=== PATIENT | male | born 1965 | race Hispanic/Latino ===

== ENCOUNTER → 2016-05-02 | Outpatient (REF) | payer BC ==
[2016-05-02 17:44] LABS: MEAN CORPUSCULAR HGB CONC 32.5 g/dl (32.0-36.5); MEAN CORPUSCULAR VOLUME 92.3 fl (80.0-96.0); RED CELL DISTRIBUTION WIDTH 14.7 % (11.5-14.5)
== END ==
LOC: M SFHCLERA 14:29
PROVIDERS: ATTEND Nurse Practitioner Family
DX: M71.571 Other bursitis, not elsewhere classified, right ankle and foot (principal)

== ENCOUNTER 2016-07-27 20:07 | Emergency (ER) | payer OTHER, BC ==
[~2016-07-27] VITALS: Ht 172.7 cm; Wt 93.0 kg
[2016-07-27 20:26] VITALS: BP 143/81
[2016-07-27] MEDS ORDERED: FISH1000 PO (20:32)
[2016-07-27] MEDS ORDERED: ZOLO100T PO (20:32)
[2016-07-27] MEDS ORDERED: BUSP15TA47 PO (20:32)
[2016-07-27] MEDS ORDERED: LISI10TA4 PO (20:32)
[2016-07-27] MEDS ORDERED: ATEN25TA PO (20:32)
== END 2016-07-27 21:16 | disposition home or self-care (01) ==
LOC: M ED 20:56
DX: R25.2 Cramp and spasm (principal); S00.83XA Contusion of other part of head, initial encounter; Y04.0XXA Assault by unarmed brawl or fight, initial encounter; Y92.89 Other specified places as the place of occurrence of the external cause; Y93.89 Activity, other specified; Y99.0 Civilian activity done for income or pay; I10 Essential (primary) hypertension; E11.9 Type 2 diabetes mellitus without complications; Z90.89 Acquired absence of other organs; Z88.8 Allergy status to other drugs, medicaments and biological substances; Z79.899 Other long term (current) drug therapy

== ENCOUNTER 2018-05-02 17:28 | Inpatient (IN) | payer BC, OTHER ==
[~2018-05-02] VITALS: Ht 172.7 cm; Wt 97.2 kg
[~2018-05-02 17:28] MED LIST: ATEN25TA PO; BUSP15TA47 PO; FISH1000 PO; LISI10TA4 PO; ZOLO100T PO
[2018-05-02] MEDS ORDERED: METOPROLOL TART 25 MG TABLET PO ONE ×2 (18:00→19:00)
[2018-05-02 18:03] LABS: HEMATOCRIT 44.4 % (42.0-52.0); HEMOGLOBIN 15.2 g/dl (13.5-17.5); MEAN CORPUSCULAR HEMOGLOBIN 29.5 pg (27.0-33.0); MEAN CORPUSCULAR HGB CONC 34.2 g/dl (32.0-36.5); PLATELET COUNT, AUTOMATED 155 10^3/uL (150-450); RED BLOOD COUNT 5.16 10^6/uL (4.30-6.10); WHITE BLOOD COUNT 5.7 10^3/uL (4.0-10.0)
[2018-05-02] MEDS ORDERED: LANTINJ4 SC (18:08)
[2018-05-02] MEDS ORDERED: motrin PO (18:08)
[2018-05-02] MEDS ORDERED: ASPI1TAB PO (18:08)
[2018-05-02] MEDS ORDERED: LISI-542 PO (18:08)
[2018-05-02] MEDS ORDERED: METF500T13 PO (18:08)
[2018-05-02] MEDS ORDERED: TRAM50TA2 PO (18:08)
[2018-05-02] MEDS: METOPROLOL 5 MG/5 ML VIAL IV SCH ×3 (18:24→18:39)
[2018-05-02 18:54] LABS: ACETAMINOPHEN LEVEL < 2.0 UG/ML (10.0-30.0); ALBUMIN 3.6 GM/DL (3.2-5.2); ALT/SGPT 29 U/L (12-78); BILIRUBIN,DIRECT < 0.1 MG/DL (0.0-0.2); BILIRUBIN,TOTAL 0.3 MG/DL (0.2-1.0); BLOOD UREA NITROGEN 18 MG/DL (7-18); CALCIUM LEVEL 8.7 MG/DL (8.5-10.1); CARBON DIOXIDE LEVEL 24 MEQ/L (21-32); CHLORIDE LEVEL 109 MEQ/L (98-107); CPK CREATINE PHOSPHOKINASE 424 U/L (39-308); CREATININE FOR GFR 1.02 MG/DL (0.70-1.30); ETHYL ALCOHOL (ETHANOL) 0.344 % (0.000-0.010); GLOMERULAR FILTRATION RATE > 60.0 (>56); GLUCOSE, FASTING 228 MG/DL (70-100); MAGNESIUM LEVEL 1.5 MG/DL (1.8-2.4); MB/CK RELATIVE INDEX 0.61 (< OR =4); PHOSPHORUS LEVEL 2.5 MG/DL (2.5-4.9); POTASSIUM SERUM 3.9 MEQ/L (3.5-5.1); SALICYLATE LEVEL 3.4 MG/DL (5.0-30.0); SODIUM LEVEL 145 MEQ/L (136-145); TOTAL PROTEIN 7.8 GM/DL (6.4-8.2); TROPONIN I < 0.02 NG/ML (< 0.10)
[2018-05-02] MEDS ORDERED: FISH7.5C PO (19:07)
[2018-05-02] MEDS ORDERED: IBUP80TA PO (19:07)
[2018-05-02] MEDS ORDERED: MAG SULF 1GM/100ML (MAG RUN) 1 GM in APPROPRIATE DILUENT 1 EA IV ONE (19:45)
[2018-05-02] MEDS ORDERED: DEXTROSE 50% 50 ML SYRINGE IV PRN (20:00)
[2018-05-02] MEDS ORDERED: GLUCOSE 4 GM CHEW TABLET PO PRN (20:00)
[2018-05-02] MEDS ORDERED: GLUCAGON FOR INJ 1 MG VIAL (J1610) SC PRN (20:00)
--- NOTE | 2018-05-02 20:19 | REP ---
Clinical: Chest pain and atrial flutter . Comparison: None . Findings: The mediastinum and cardiac silhouette are stable and within normal limits for portable technique. The lung holliday are clear without acute consolidation, effusion, or pneumothorax. Skeletal structures are intact. Impression: No acute cardiopulmonary process appreciated. Electronically Signed by Filipe Altamirano MD 05/02/2018 08:10 P
[2018-05-02] MEDS ORDERED: LISINOPRIL 5 MG TAB PO SCH (21:00)
[2018-05-02 21:35] VITALS: BP 125/95
[2018-05-02] MEDS: NS 1,000 ML IV SCH (21:51)
[2018-05-02 22:00] VITALS: BP 125/95
[2018-05-02] MEDS ORDERED: METOPROLOL TART 25 MG TABLET PO SCH (22:00)
[2018-05-02] MEDS: THIAMINE 100 MG TAB PO SCH (22:07)
[2018-05-02] MEDS: ENOXAPARIN 100MG/1ML SYRINGE (J1650) SC SCH (22:08)
[2018-05-02 23:50] VITALS: BP 141/93
[2018-05-03] VITALS (13 sets, daily range): BP systolic 130–168; BP diastolic 80–120
[2018-05-03 00:35] LABS: APPEARANCE, URINE CLEAR (CLEAR); BACTERIA, URINE AUTO NEGATIVE (NEGATIVE); BILIRUBIN, URINE AUTO NEGATIVE (NEGATIVE); BLOOD, URINE BLOOD 1+ (NEGATIVE); COLOR, URINE YELLOW (YELLOW); GLUCOSE, URINE (UA) AUTO 3+ mg/dL (NEGATIVE); KETONE, URINE AUTO NEGATIVE (NEGATIVE); LEUKOCYTE ESTERASE, URINE AUTO NEGATIVE (NEGATIVE); MUCUS, URINE SMALL (NEGATIVE); NITRITE, URINE AUTO NEGATIVE (NEGATIVE); PROTEIN, URINE AUTO 3+ mg/dL (NEGATIVE); RBC, URINE AUTO 3 /HPF (0-3); SQUAMOUS EPITHELIAL CELL UR AU 0 /HPF (0-6); UROBILINOGEN, URINE AUTO 0.2 mg/dL (0.0-2.0); WBC, URINE AUTO 2 /HPF (0-3)
[2018-05-03 00:42] LABS: AMPHETAMINES LEVEL URINE NEGATIVE (NEGATIVE); BARBITURATES URINE NEGATIVE (NEGATIVE); BENZODIAZEPINES URINE NEGATIVE (NEGATIVE); CANNABINOIDS URINE NEGATIVE (NEGATIVE); COCAINE METABOLITE URINE NEGATIVE (NEGATIVE); METHADONE URINE NEGATIVE (NEGATIVE); OPIATES URINE NEGATIVE (NEGATIVE); PHENCYCLIDINE URINE NEGATIVE (NEGATIVE)
[2018-05-03] MEDS: HumaLOG INSULIN (NovoLOG) PER UNIT SC SCH ×5 (01:34→20:21)
[2018-05-03] MEDS: ONDANSETRON 4MG/2ML VIAL (J2405) IV PRN ×2 (04:01→21:23)
[2018-05-03] MEDS: LORazepam 2 MG TAB PO PRN ×3 (04:07→23:59)
--- NOTE | 2018-05-03 04:30 | HPE ---
DATE OF ADMISSION: 05/02/2018 CHIEF COMPLAINT: The patient was brought in by emergency medical services (EMS) after his called stating that he had suicidal ideations. He was noted to be in new onset atrial flutter (a-flutter) as well as noted to be intoxicated. HISTORY OF PRESENT ILLNESS: The patient is a 53-year-old male. He has a significant past medical history of chronic pain likely secondary to osteoarthritis, hypertension, diabetes. He was brought into the emergency room after his called EMS stating that he had suicidal ideations. Upon arrival to the emergency room the patient denies suicidal or homicidal ideations. He states his is fabricating the story about him having suicidal ideations. He is a chronic drinker. He states he has 8 comped glasses of vodka multiple times per week. On admission he is noted to have a blood alcohol level of 0.344, appears intoxicated. He is also noted to be in new onset atrial flutter (a-flutter). He complains that he has been having palpitations on and off for the past several days. He denies chest pain, cough, fevers, chills, shortness of breath, urinary symptoms orthopnea or paroxysmal nocturnal dyspnea (PND). He does not have any noticeable tremors. He denies auditory or tactile hallucinations. He states he has withdrawn in the past but has never had withdrawal seizures. He has attempted to do rehabilitation but states he was not able to complete it because he didn't like the facility. He vehemently denies any suicidal or homicidal ideations stating this entire story has been fabricated but he does seem a bit disheveled and is displaying some odd behavior while in the emergency room. PAST MEDICAL HISTORY: See history of the present illness (HPI). PAST SURGICAL HISTORY: He has had an appendectomy. HOME MEDICATIONS: Include: - aspirin - atenolol - ibuprofen as needed - tramadol - Lantus 25 units at night SOCIAL HISTORY: He smokes a pack per day. He endorses alcohol abuse. He states he has multiple hard drinks of tequila several times per week. His last drink was earlier today. He denies any drug use. ALLERGIES: To BUPROPION; reaction is unknown. FAMILY HISTORY: Family history is noncontributory. REVIEW OF SYSTEMS: A 12-point review of systems was completed, all of which were negative except those listed in the history of the present illness. PAST PSYCHOLOGICAL HISTORY: He denies any prior history of suicidal attempts. He currently denies homicidal or suicidal ideations. VITAL SIGNS ON ADMISSION: Notable for a heart rate of 124, respirations of 20, saturating at 94% on room air, blood pressure of 150/97, temperature 98.1. PHYSICAL EXAMINATION: General: He is well nourished, in no apparent distress. Seems frustrated. Head is normocephalic, atraumatic. Eyes: Extraocular movements are intact. Pupils equal, round, reactive to light. Neck is supple. No jugular venous pressure (JVP). Lungs: Appear to be clear to auscultation. No crackles, wheezes, rales or rhonchi. Cardiovascular: Irregularly irregular rhythm. Normal S1, S2. No murmurs, gallops, or rubs. Abdomen: Soft, nontender, nondistended, positive bowel sounds. No rebound or guarding. Extremities: No pitting edema or calf tenderness. Skin: Appears to be intact. No rashes, lesions or breakdown. Neurological: Alert and oriented (A and O) times three. No focal deficits appreciated on examination. No visible tremors of the outstretched arms. PSYCHOLOGICAL: Denies tactile or visual hallucinations. LABORATORIES AND IMAGING COMPLETED IN THE EMERGENCY ROOM: White count of 5, hemoglobin and hematocrit (H and H) of 15/44, platelet count of 155. Chemistry: Shows a BUN and creatinine of 18/1.02. Troponins: Negative. Thyroid-stimulating hormone (TSH) 1.23. No imaging was completed in the emergency room. Urine toxicology still pending. ASSESSMENT AND PLAN: 1. New onset atrial flutter (a-flutter). Will rule out underlying structural heart disease with an echocardiogram as well as rule out acute coronary syndrome (ACS) with serial troponins, serial electrocardiogram (EKG) and continue the patient on telemetry. Will assess for any signs of infection with a urinalysis (UA) and a chest x-ray. Thyroid-stimulating hormone (TSH) within normal limits. This is possibly secondary to chronic alcohol abuse. Will place the patient on intravenous (IV) fluids. Will place the patient on Lopressor 25 every 8 hours. Hold his atenolol with a goal heart rate of 60-110, Cardizem as needed pushes as blood pressure permits. CHADS VASc score of [address]. [address] on Lovenox twice a day. Echocardiogram ordered for the morning. 2. For ethanol (EtOH) intoxication impending withdrawals. Will place him on the Clinical [place] Withdrawal Assessment for Alcohol (CIWA) protocol, Ativan as per protocol. Thiamine, folate, multivitamin. Will replenish his magnesium for hypomagnesemia. Will place him on normal saline. 3. Suicidal ideation. The patient has been seen here by the special services supervisor in the emergency room. He will be placed on a one-to-one and will likely need psychiatric evaluation in the morning. 4. Hypertension. Will hold his atenolol while he is on the beta-kenneth. Will hold his aspirin as he is on Lovenox for now. 5. Diabetes. Will continue his Lantus and place him on insulin sliding scale. 6. Chronic pain. Will continue his tramadol. 7. Supportive deep vein thrombosis (DVT) prophylaxis. He is on Lovenox for atrial flutter (a-flutter). 8. Gastrointestinal (GI) prophylaxis. Not indicated. 9. Diet: Cardiac, diabetic diet.
[2018-05-03 05:36] LABS: HEMATOCRIT 38.7 % (42.0-52.0); MEAN CORPUSCULAR HEMOGLOBIN 29.9 pg (27.0-33.0); MEAN CORPUSCULAR HGB CONC 34.1 g/dl (32.0-36.5); MEAN CORPUSCULAR VOLUME 87.8 fl (80.0-96.0); PLATELET COUNT, AUTOMATED 127 10^3/uL (150-450); RED BLOOD COUNT 4.41 10^6/uL (4.30-6.10); WHITE BLOOD COUNT 6.1 10^3/uL (4.0-10.0)
[2018-05-03 05:42] LABS: HEMOGLOBIN 13.2 g/dl (13.5-17.5)
[2018-05-03 06:03] LABS: BLOOD UREA NITROGEN 17 MG/DL (7-18); CALCIUM LEVEL 8.1 MG/DL (8.5-10.1); CARBON DIOXIDE LEVEL 28 MEQ/L (21-32); CHLORIDE LEVEL 104 MEQ/L (98-107); GLOMERULAR FILTRATION RATE > 60.0 (>56); GLUCOSE, FASTING 214 MG/DL (70-100); MAGNESIUM LEVEL 1.4 MG/DL (1.8-2.4); POTASSIUM SERUM 4.5 MEQ/L (3.5-5.1); SODIUM LEVEL 141 MEQ/L (136-145); TROPONIN I < 0.02 NG/ML (< 0.10)
[2018-05-03] MEDS: MAG SULF 1GM/100ML (MAG RUN) 1 GM in APPROPRIATE DILUENT 1 EA IV SCH ×2 (07:27→09:18)
[2018-05-03] MEDS ORDERED: METOPROLOL TART 25 MG TABLET PO SCH (09:00)
[2018-05-03] MEDS ORDERED: METOPROLOL 5 MG/5 ML VIAL IV STA (09:15)
[2018-05-03] MEDS: LEVEMIR (INSULIN DETEMIR) 1 UNITS/0.01ML SC SCH (09:16)
[2018-05-03] MEDS: ENOXAPARIN 100MG/1ML SYRINGE (J1650) SC SCH ×2 (09:16→20:21)
[2018-05-03] MEDS: OMEGA-3 1000MG CAPSULE PO SCH (09:17)
[2018-05-03] MEDS: MULTIVITAMINS/MINERALS THERAP 1 TAB PO SCH (09:17)
[2018-05-03] MEDS: FOLIC ACID 1 MG TAB PO SCH (09:17)
[2018-05-03] MEDS: THIAMINE 100 MG TAB PO SCH ×2 (09:17→20:20)
[2018-05-03] MEDS: OXAZEPAM 15 MG CAP PO SCH ×3 (09:36→22:46)
[2018-05-03] MEDS: METOPROLOL 5 MG/5 ML VIAL IV SCH ×4 (10:08→22:51)
[2018-05-03] MEDS: NS 1,000 ML IV SCH ×2 (10:40→21:23)
[2018-05-03] MEDS ORDERED: METOPROLOL TART 25 MG TABLET PO ONE (12:30)
[2018-05-03] MEDS: MAGNESIUM OXIDE 400 MG TAB (MAG-OX) PO SCH ×2 (12:41→20:20)
[2018-05-03] MEDS: traMADol 50 MG TAB PO PRN (16:32)
[2018-05-03] MEDS: METOPROLOL TART 25 MG TABLET PO SCH (20:21)
[2018-05-03] MEDS ORDERED: PERCOCET 5MG/325MG TAB PO ONE (21:00)
[2018-05-04] VITALS (8 sets, daily range): BP systolic 140–188; BP diastolic 92–115
--- NOTE | 2018-05-04 00:36 | ECGEPIP ---
Stationary ECG Study [facility] Test Date: 2018-05-03 Pat Name: SHAJI LARA Department: Room: [place] [address] Gender: M [place]: KAYLEEN : 1965 Requested By: GARY THOMAS Order Number: [id number] Reading MD: Mal Ornelas Measurements Intervals [place] Rate: 81 P: 50 GA: 163 QRS: 66 QRSD: 101 T: 49 QT: 402 QTc: 469 Interpretive Statements SINUS RHYTHM WITH OCCASIONAL VENTRICULAR PREMATURE COMPLEXES NO PRIOR TRACING Electronically Signed On 05-04-2018 0:35:33 EST by Mal Ornelas
[2018-05-04] MEDS: LORazepam 2 MG TAB PO PRN ×2 (04:18→09:04)
[2018-05-04] MEDS: traMADol 50 MG TAB PO PRN ×2 (04:18→14:04)
[2018-05-04] MEDS ORDERED: LISINOPRIL 5 MG TAB PO ONE (04:45)
[2018-05-04] MEDS: OXAZEPAM 15 MG CAP PO SCH ×3 (05:52→21:56)
[2018-05-04] MEDS: NS 1,000 ML IV SCH ×2 (05:53→15:49)
[2018-05-04] MEDS ORDERED: oxyCODONE 5MG TAB PO ONE (06:15)
--- NOTE | 2018-05-04 06:18 | ECHO ---
DATE OF PROCEDURE: 05/03/2018 DATE OF : 1965 AGE: 53. REFERRING PROVIDER: Friday PATIENT LOCATION: Room 3219 REASON FOR THE ECHOCARDIOGRAM: Atrial fibrillation/flutter. 2D MEASUREMENTS: IVS: 1.2 cm LV: 3.8 cm LVPW: 1.2 cm LA: 4.6 cm Aorta: 3.5 cm DOPPLER MEASUREMENTS: Peak velocity across the aortic valve: 0.75 m/s Peak velocity across the LVOT: 1.1 m/s Mitral E: 0.86 2D COMMENTS: 1. Technically limited study due to poor acoustic window. 2. Normal left ventricular size and wall thickness. Left ventricular systolic function also appeared to be normal with a LVEF estimated at 50-55%. 3. Mildly enlarged left atrium. The right atrium may be minimally enlarged as well as the right ventricle, but the right ventricle free wall was laura well. 4. The atrial septum appeared to be normal without evidence of defect or shunt. 5. Normal aortic root. 6. Trace to small pericardial effusion noted posteriorly in limited views. 7. The aortic valve, mitral valve and tricuspid valve appeared to be normal. The pulmonic valve also appeared to be normal. The proximal pulmonary artery branches were not well visualized. 8. The inferior vena cava was not well visualized. DOPPLER: It detects mild mitral regurgitation, trace tricuspid regurgitation and trace aortic regurgitation noted in limited views. Assessment of the left ventricular diastolic function was limited in view of the underling atrial fibrillation/flutter. IMPRESSION: 1. Low normal global left ventricular systolic function. 2. Mildly enlarged left atrium with mild mitral regurgitation. 3. Trace tricuspid regurgitation. 4. Trace pericardial effusion noted in limited views.
[2018-05-04 06:24] LABS: HEMATOCRIT 37.8 % (42.0-52.0); HEMOGLOBIN 12.7 g/dl (13.5-17.5); MEAN CORPUSCULAR HEMOGLOBIN 29.8 pg (27.0-33.0); MEAN CORPUSCULAR HGB CONC 33.6 g/dl (32.0-36.5); MEAN CORPUSCULAR VOLUME 88.7 fl (80.0-96.0); PLATELET COUNT, AUTOMATED 111 10^3/uL (150-450); RED BLOOD COUNT 4.26 10^6/uL (4.30-6.10); WHITE BLOOD COUNT 6.1 10^3/uL (4.0-10.0)
[2018-05-04] MEDS: NICOTINE 21MG/24HR 1 EA TRANSDERMAL TD PRN (06:43)
[2018-05-04 06:51] LABS: BLOOD UREA NITROGEN 15 MG/DL (7-18); CALCIUM LEVEL 8.1 MG/DL (8.5-10.1); CARBON DIOXIDE LEVEL 27 MEQ/L (21-32); CHLORIDE LEVEL 100 MEQ/L (98-107); CREATININE FOR GFR 0.92 MG/DL (0.70-1.30); GLOMERULAR FILTRATION RATE > 60.0 (>56); GLUCOSE, FASTING 199 MG/DL (70-100); POTASSIUM SERUM 4.2 MEQ/L (3.5-5.1); SODIUM LEVEL 134 MEQ/L (136-145)
--- NOTE | 2018-05-04 07:32 | IPN ---
DATE OF VISIT: 05/03/2018 SUBJECTIVE: The patient is seen and examined in the room today. During the encounter, the patient has recurrent atrial flutter with a heart rate fluctuating between 130 to 160s. The patient also noted to have increased sweating and increased anxiety. The patient stated his last drink was the morning of the date of admission. The patient admitted he has been drinking excessively. Usually he will drink more than half a liter of liquor every day. At the time I encountered the patient, he denies thoughts of hurting himself. OBJECTIVE: Vital Signs: Temperature is 98.6, pulse 154, respirations 20, blood pressure 154/94, pulse oximetry 95% in room air. General: Anxious, mild distress, alert and oriented times three. HEENT: Normocephalic, atraumatic. Extraocular grossly intact. Cardiovascular: Tachycardiac, irregularly irregular. Lungs: Clear to auscultation bilaterally. Abdomen: Soft. Nontender. Nondistended. Bowel sounds present. Extremities: No edema. LABORATORY DATA: WBC 6.1, hemoglobin 13.3, hematocrit 38.7, platelet count 127. Sodium 141, potassium 4.5, chloride 104, carbon dioxide 28, BUN 17, creatinine 0.9, GFR greater than 60, fasting glucose 214, calcium 8.1, magnesium 1.4, troponin I less than 0.02. ASSESSMENT AND PLAN: 1. Severe alcohol withdrawal. The patient does have a significant alcohol consumption history. On the date of admission, the patient had an alcohol level of 0.344. The patient demonstrated signs of withdrawal. The patient was started on Serax supplemented with IV Ativan as needed. Continue with CIWA protocol, thiamine, folic acid and multivitamin. 2. Atrial flutter. At the time the patient arrived in the emergency room, the patient had atrial flutter and beta kenneth was given to the patient. The patient temporarily converted back to sinus rhythm. At the time of the morning encounter, the patient's rhythm returned to atrial flutter. Beta kenneth dosage and frequency has been adjusted. The patient is on Lovenox. 3. Diabetes. On Levemir, sliding scale, consistent carbohydrate diet. 4. Hypertension. Currently the patient is on metoprolol. 5. Osteoarthritis. 6. Questionable suicidal ideations. Information reported to the EMS by patient's . Patient currently has a sitter. 7. Deep vein thrombosis (DVT) prophylaxis. On Lovenox.
[2018-05-04] MEDS: MULTIVITAMINS/MINERALS THERAP 1 TAB PO SCH (08:53)
[2018-05-04] MEDS: MAGNESIUM OXIDE 400 MG TAB (MAG-OX) PO SCH ×2 (08:53→21:56)
[2018-05-04] MEDS: OMEGA-3 1000MG CAPSULE PO SCH (08:53)
[2018-05-04] MEDS: THIAMINE 100 MG TAB PO SCH ×2 (08:53→21:56)
[2018-05-04] MEDS: FOLIC ACID 1 MG TAB PO SCH (08:54)
[2018-05-04] MEDS: HumaLOG INSULIN (NovoLOG) PER UNIT SC SCH ×4 (08:55→21:00)
[2018-05-04] MEDS: METOPROLOL TART 25 MG TABLET PO SCH ×2 (08:55→21:56)
[2018-05-04] MEDS: LEVEMIR (INSULIN DETEMIR) 1 UNITS/0.01ML SC SCH (08:56)
[2018-05-04] MEDS: ENOXAPARIN 100MG/1ML SYRINGE (J1650) SC SCH ×2 (08:56→21:56)
[2018-05-04] MEDS ORDERED: METOPROLOL 5 MG/5 ML VIAL IV ONE ×2 (09:00→11:00)
--- NOTE | 2018-05-04 15:50 | IPN ---
DATE OF SERVICE: 05/04/2018 SUBJECTIVE: Patient examined at bedside, resting comfortably. He reports he had some bilateral knee joint pain overnight that he usually gets but it is improving since he was given Percocet and oxycodone. He has no other complaints today. He again denies having any thoughts to harm himself or anyone else. He does admit to drinking "half a liter of vodka a day more or less." No reported events overnight. Of note, his heart rate is up to the 150s this morning. He himself denies any palpitations or hallucinations. OBJECTIVE: Vital Signs: Temperature 97.3, pulse 160, respirations 20, blood pressure 154/98, pulse oximetry 99% on room air. General: Resting in bed, mildly anxious and tired. Alert and oriented times three. HEENT: Normocephalic, atraumatic. Extraocular muscles intact. Cardiovascular: Tachycardiac with normal S1, S2. He is noted to be in sinus this morning. Lungs: Clear bilaterally. Equal chest rise. No wheezing, rhonchi or rales. Abdomen: Soft. Nontender. Nondistended. Hypoactive bowel sounds. Extremities: No clubbing, cyanosis, edema. Skin: No visible rashes or lesions. LABS: WBC 6.1. Hemoglobin and hematocrit 12.7, 37.8. Platelets 111. Sodium 134. Potassium 4.2. Chloride 100. CO2 27. BUN and creatinine 15 and 0.92. ASSESSMENT AND PLAN: 1. Acute alcohol withdrawal. The patient regularly drinks about a half liter of hard liquor a day and is on clinical institute withdrawal assessment for alcohol (CIWA) protocol with scheduled Serax and as needed Ativan, with folate, multivitamins and thiamine. On admission, his blood alcohol content (TABATHA) was 0.344. Continue closely monitoring in progressive care unit (PCU). 2. Tachycardia. The patient has had bouts of atrial flutter during his stay and continues on oral Lopressor. He is noted to be anxious this morning with heart rate in the 150s to 160s. Will closely reassess after IV Lopressor is added. Of note, he is in sinus this morning, no longer in atrial flutter and is on appropriate dosage of Lovenox. 3. Insulin-dependent diabetes mellitus, type 2. Continue consistent carbohydrate diet and insulin sliding scale inpatient. 4. Hypertension. He is continued on beta-kenneth, and home lisinopril is currently on hold as we get his heart rate under control. 5. Chronic arthritic pain. Patient is continued on his home [place]-3 fatty acids and tramadol. 6. Questionable suicidal ideation. When patient was initially brought in by Emergency Medical Services (EMS) it was reported by his that he had thoughts to harm himself. Continue sitter in the room and closely monitoring in progressive care unit. Patient himself denies any thoughts to harm self or anyone else. 7. Deep vein thrombosis (DVT) prophylaxis. On Lovenox. DISPOSITION: Continue closely monitoring his heart rate and for signs of alcohol withdrawal. [facility] My faculty preceptor for this patient encounter was physically present during the encounter and was fully available. All aspects of the patient interview, examination, medical decision making process, and medical care plan development were reviewed and approved by the faculty preceptor. The faculty preceptor is aware and concurs with the plan as stated in the body of this note and will attest to such by his/her co-signature.
[2018-05-04] MEDS ORDERED: MELOXICAM (MOBIC) 7.5 MG TAB PO ONE (16:15)
[2018-05-04] MEDS ORDERED: ROSU40TA3 PO (17:17)
[2018-05-04] MEDS ORDERED: HYDRO50TAB PO (17:17)
[2018-05-04] MEDS ORDERED: LISI-538 PO (17:17)
[2018-05-04] MEDS ORDERED: DRIS50003 PO (17:17)
[2018-05-04] MEDS ORDERED: PRED5TA PO (17:17)
--- NOTE | 2018-05-04 18:25 | REP ---
Left ankle series: Four views. History: Joint pain and swelling. Question effusion. Findings: Four views of the left ankle show plantar calcaneal spurring. There is some mild diffuse swelling. Ankle mortise is intact. Mild tibiotalar spurring is noted. There is no compelling evidence of joint effusion on lateral radiograph. There is a tiny calcific density adjacent to the lateral malleolar tip but this does not appear to be acute. Impression: Diffuse swelling. Tibiotalar spurring. Heel spur. No acute bony abnormality. No compelling evidence of joint effusion. Electronically Signed by Alexis Yates MD 05/05/2018 08:07 A
--- NOTE | 2018-05-04 20:05 | ECGEPIP ---
Stationary ECG Study [facility] - ED Test Date: 2018-05-04 Pat Name: SHAJI LARA Department: Room: [place] [address] Gender: M Clinic Lpn: : 1965 Requested By: Ciara Grier Order Number: [id number] Reading MD: Gosia Chaney Measurements Intervals [place] Rate: 89 P: 41 WV: 164 QRS: 65 QRSD: 102 T: 33 QT: 374 QTc: 457 Interpretive Statements SINUS RHYTHM POSSIBLE LEFT ATRIAL ENLARGEMENT PROLONGED QTC NONSPECIFIC ST T WAVE CHANGES CW 05/03/[address] T WAVE CHANGES Electronically Signed On 05-04-2018 20:04:46 EST by Gosia Chaney
[2018-05-05 00:10] VITALS: BP 174/102
[2018-05-05] MEDS: traMADol 50 MG TAB PO PRN ×2 (00:30→17:26)
[2018-05-05] MEDS: NS 1,000 ML IV SCH (03:20)
[2018-05-05 04:00] VITALS: BP 168/102
[2018-05-05] MEDS: OXAZEPAM 15 MG CAP PO SCH ×3 (05:43→21:35)
[2018-05-05 05:51] LABS: HEMATOCRIT 33.4 % (42.0-52.0); HEMOGLOBIN 11.6 g/dl (13.5-17.5); MEAN CORPUSCULAR HEMOGLOBIN 29.7 pg (27.0-33.0); MEAN CORPUSCULAR HGB CONC 34.7 g/dl (32.0-36.5); MEAN CORPUSCULAR VOLUME 85.4 fl (80.0-96.0); RED BLOOD COUNT 3.91 10^6/uL (4.30-6.10); WHITE BLOOD COUNT 6.8 10^3/uL (4.0-10.0)
[2018-05-05 06:10] LABS: BLOOD UREA NITROGEN 10 MG/DL (7-18); CALCIUM LEVEL 8.2 MG/DL (8.5-10.1); CARBON DIOXIDE LEVEL 25 MEQ/L (21-32); CHLORIDE LEVEL 99 MEQ/L (98-107); CREATININE FOR GFR 0.77 MG/DL (0.70-1.30); GLOMERULAR FILTRATION RATE > 60.0 (>56); GLUCOSE, FASTING 128 MG/DL (70-100); MAGNESIUM LEVEL 1.2 MG/DL (1.8-2.4); POTASSIUM SERUM 3.7 MEQ/L (3.5-5.1); SODIUM LEVEL 131 MEQ/L (136-145)
[2018-05-05 06:25] LABS: PLATELET COUNT, AUTOMATED 91 10^3/uL (150-450)
[2018-05-05 08:00] VITALS: BP 172/115
[2018-05-05] MEDS: OMEGA-3 1000MG CAPSULE PO SCH (08:10)
[2018-05-05] MEDS: MAGNESIUM OXIDE 400 MG TAB (MAG-OX) PO SCH ×2 (08:11→21:35)
[2018-05-05] MEDS: METOPROLOL TART 25 MG TABLET PO SCH ×2 (08:11→21:34)
[2018-05-05] MEDS: MULTIVITAMINS/MINERALS THERAP 1 TAB PO SCH (08:12)
[2018-05-05] MEDS: THIAMINE 100 MG TAB PO SCH (08:12)
[2018-05-05] MEDS: predniSONE 5 MG TAB PO SCH (08:12)
[2018-05-05] MEDS: FOLIC ACID 1 MG TAB PO SCH (08:12)
[2018-05-05] MEDS: ENOXAPARIN 100MG/1ML SYRINGE (J1650) SC SCH ×2 (08:12→21:34)
[2018-05-05] MEDS: HumaLOG INSULIN (NovoLOG) PER UNIT SC SCH ×4 (08:13→20:40)
[2018-05-05] MEDS: LEVEMIR (INSULIN DETEMIR) 1 UNITS/0.01ML SC SCH (08:13)
[2018-05-05] MEDS: MAG SULF 1GM/100ML (MAG RUN) 1 GM in APPROPRIATE DILUENT 1 EA IV SCH ×2 (10:03→11:12)
[2018-05-05] MEDS ORDERED: SLF 3 ML SYR IV PRN (10:15)
[2018-05-05 12:00] VITALS: BP_SYST 150; BP_SYST 160; BP_DIAS 108; BP_DIAS 60
--- NOTE | 2018-05-05 14:15 | REP ---
Duplex extremity venous ultrasound: Bilateral lower extremity. History: Rule out DVT. Findings: The deep veins are anechoic and fully compressible from the groin to the popliteal fossa in the left and right lower extremity. Color flow imaging is homogeneous. Spectral Doppler interrogation demonstrates intact respiratory variation in flow and normal manual augmentation of flow. There is no evidence of deep vein thrombosis. Impression: Negative bilateral lower extremity duplex venous ultrasound. No evidence of deep vein thrombosis. Electronically Signed by Alexis Yates MD 05/05/2018 02:06 P
[2018-05-05] MEDS: SLF 3 ML SYR IV SCH ×2 (14:24→21:16)
[2018-05-05 16:00] VITALS: BP 160/102
--- NOTE | 2018-05-05 16:15 | IPN ---
DATE: 05/05/2018 SUBJECTIVE: The patient is seen at bedside with a sitter in the room. No acute events overnight. Per staff, his heart rate has actually improved. He is no longer having bouts of atrial flutter or heart rate in the 150s and 160s as he did yesterday. He also reports that his left knee and ankle pain are much better after he received his dose of prednisone yesterday. No other signs of withdrawal yesterday. No palpitations or hallucination. The patient is eager to get home. OBJECTIVE: VITAL SIGNS: Temperature 99.6, pulse 85, respirations 20, blood pressure (BP) 172/115 with a mean arterial pressure (MAP) of 134, pulse oximetry 97% on room air. GENERAL: Resting comfortably in bed, in no acute distress. Alert and oriented times three. Fully conversant. HEENT: Normocephalic, atraumatic. Extraocular muscles intact. Moist mucous membranes. NECK: Supple. CARDIOVASCULAR: Regular rate and rhythm. Normal S1 and S2. No audible murmurs. LUNGS: Clear bilaterally with equal chest rise. No wheezes, rhonchi or rales. ABDOMEN: Soft, nontender, nondistended. Positive bowel sounds. EXTREMITIES: No clubbing, cyanosis or edema. He does have some swelling and warmth to his left ankle, more so than the right and his left knee more than the right. However, this has improved from yesterday. SKIN: No evidence of rashes, lesions or ulcerations. LABORATORY: White blood count (WBC) is 6.8, hemoglobin and hematocrit 11.6 and 33.4. Platelets 14. Sodium 131, potassium 3.7, chloride 99, BUN and creatinine 10 and 0.77, magnesium 1.2. IMAGING: Complete. Ankle x-ray of the left reveals diffuse swelling, tibial, talar spurring, heel spur. No acute bony abnormality. No compelling evidence of a joint effusion. ASSESSMENT AND PLAN: 1. Acute alcohol withdrawal. The patient has been in withdrawal during this hospitalization; however, he seems to be stable as of yesterday and today. No hallucinations or aggression. He regularly drinks half a liter of hard liquor a day. Continue Clinical [place] Withdrawal Assessment (CIWA) protocol. Scheduled Serax and as needed Ativan; thiamine, folate, multivitamin on board. 2. Tachycardia with bouts of atrial flutter. The patient has not had atrial flutter as of yesterday evening into this morning. He continues to remain in normal sinus rhythm. He is on Lopressor 75 mg by mouth twice a day, as well as Lovenox for his paroxysmal atrial flutter. 3. Questionable suicidal ideation when he was initially brought in by Emergency Medical Service (EMS). His had reported he had thoughts of harming himself. He again denies this consistently since he has been here. A sitter is present in the room. Will continue to closely monitor. He denies any thoughts of harming himself or anyone else or any previous suicidal attempts. 4. Chronic arthritic pain with left ankle warmth and swelling, likely a flareup. We have obtained his previous emergency room (ER) records, which reveal he does have gouty arthropathy for which he takes prednisone 5 mg as needed. His pain has significantly improved since he was resumed on this as of yesterday. Will continue closely monitoring. Ankle x-ray was negative for any effusion or any acute concerns yesterday. 5. Insulin-dependent diabetes mellitus type 2. Continue insulin sliding scale and consistent carbohydrate hydrate. He is normally on Lantus at home. 6. Hypertension. He is continued on beta kenneth due to his elevated blood pressure this morning. We will resume his lisinopril as well and continue closely monitoring. 7. Deep vein thrombosis (DVT) prophylaxis on Lovenox. DISPOSITION: Pending clinical improvement. Will likely be able to be downgraded hopefully today or tomorrow and discharged within the week. My faculty preceptor for this patient encounter was physically present during the encounter and was fully available. All aspects of the patient interview, examination, medical decision making process, and medical care plan development were reviewed and approved by the faculty preceptor. The faculty preceptor is aware and concurs with the plan as stated in the body of this note and will attest to such by his/her cosignature.
[2018-05-05 20:00] VITALS: BP 180/90
[2018-05-05] MEDS: IBUPROFEN 600 MG TAB PO PRN (21:35)
[2018-05-05] MEDS: LISINOPRIL 10 MG TAB PO SCH (21:35)
[2018-05-06] VITALS (9 sets, daily range): BP systolic 140–152; BP diastolic 75–100
[2018-05-06] MEDS: traMADol 50 MG TAB PO PRN ×2 (01:16→13:19)
[2018-05-06] MEDS: SLF 3 ML SYR IV SCH ×3 (05:38→21:44)
[2018-05-06] MEDS: OXAZEPAM 15 MG CAP PO SCH ×3 (05:38→21:44)
[2018-05-06 06:09] LABS: HEMATOCRIT 33.2 % (42.0-52.0); HEMOGLOBIN 11.1 g/dl (13.5-17.5); MEAN CORPUSCULAR HEMOGLOBIN 29.5 pg (27.0-33.0); MEAN CORPUSCULAR HGB CONC 33.4 g/dl (32.0-36.5); MEAN CORPUSCULAR VOLUME 88.3 fl (80.0-96.0); RED BLOOD COUNT 3.76 10^6/uL (4.30-6.10); WHITE BLOOD COUNT 5.5 10^3/uL (4.0-10.0)
[2018-05-06 06:12] LABS: PLATELET COUNT, AUTOMATED 90 10^3/uL (150-450)
[2018-05-06 06:30] LABS: BLOOD UREA NITROGEN 12 MG/DL (7-18); CALCIUM LEVEL 8.3 MG/DL (8.5-10.1); CARBON DIOXIDE LEVEL 28 MEQ/L (21-32); CHLORIDE LEVEL 99 MEQ/L (98-107); CREATININE FOR GFR 0.79 MG/DL (0.70-1.30); GLOMERULAR FILTRATION RATE > 60.0 (>56); GLUCOSE, FASTING 148 MG/DL (70-100); MAGNESIUM LEVEL 1.5 MG/DL (1.8-2.4); POTASSIUM SERUM 3.9 MEQ/L (3.5-5.1); SODIUM LEVEL 133 MEQ/L (136-145)
[2018-05-06] MEDS ORDERED: MAG SULF 1GM/100ML (MAG RUN) 1 GM in APPROPRIATE DILUENT 1 EA IV ONE (08:15)
[2018-05-06] MEDS: LEVEMIR (INSULIN DETEMIR) 1 UNITS/0.01ML SC SCH (08:42)
[2018-05-06] MEDS: HumaLOG INSULIN (NovoLOG) PER UNIT SC SCH ×4 (08:42→21:00)
[2018-05-06] MEDS: MULTIVITAMINS/MINERALS THERAP 1 TAB PO SCH (08:43)
[2018-05-06] MEDS: METOPROLOL TART 25 MG TABLET PO SCH ×2 (08:43→21:43)
[2018-05-06] MEDS: predniSONE 5 MG TAB PO SCH (08:43)
[2018-05-06] MEDS: MAGNESIUM OXIDE 400 MG TAB (MAG-OX) PO SCH ×2 (08:43→21:44)
[2018-05-06] MEDS: FOLIC ACID 1 MG TAB PO SCH (08:43)
[2018-05-06] MEDS: OMEGA-3 1000MG CAPSULE PO SCH (08:43)
[2018-05-06] MEDS: NICOTINE 21MG/24HR 1 EA TRANSDERMAL TD PRN (08:51)
--- NOTE | 2018-05-06 10:59 | IPNPDOC ---
Date Seen The patient was seen on 05/06/18. Progress Note SUBJECTIVE: Pt examined at bedside with sitter in room. No events overnight. HR continues to remain stable and in NSR. OBJECTIVE: VITAL SIGNS: see below GENERAL: Resting comfortably in bed, in no acute distress. Alert and oriented times three. Fully conversant. HEENT: Normocephalic, atraumatic. Extraocular muscles intact. Moist mucous membranes. NECK: Supple. CARDIOVASCULAR: Regular rate and rhythm. Normal S1 and S2. No audible murmurs. LUNGS: Clear bilaterally with equal chest rise. No wheezes, rhonchi or rales. ABDOMEN: Soft, nontender, nondistended. Positive bowel sounds. EXTREMITIES: No clubbing, cyanosis or edema. Swelling of knees, l>r. Ankle swelling appears better. SKIN: No evidence of rashes, lesions or ulcerations. ASSESSMENT AND PLAN: 1. Acute alcohol withdrawal. Pt continues being stable and no futher episodes of withdrawal during this stay. No hallucinations or aggression. He regularly drinks half a liter of hard liquor a day. Continue Clinical [place] Withdrawal Assessment (CIWA) protocol. Scheduled Serax and as needed Ativan; thiamine, folate, multivitamin on board. 2. Tachycardia with paroxysmal atrial flutter. No further episodes of Aflutter for past 2 days. HR stable in NSR. Continue Lopressor 75 mg po bid & Lovenox. 3. Questionable suicidal ideation. When he was initially brought in by Emergency Medical Service (EMS), had reported he had thoughts of harming himself. He again denies this consistently since he has been here. A sitter is present in the room. Will continue to closely monitor. He denies any thoughts of harming himself or anyone else or any previous suicidal attempts. Will obtain Psych c/s once medically stable. 4. Gouty arthropathy & chronic arthritic pain improved since restarting home po prednisone 5mg. Left knee continues to bother him and appears swollen. Pending xray. Doppler & left ankle xray thus far negative. 5. Insulin-dependent diabetes mellitus type 2. Continue insulin sliding scale and consistent carbohydrate hydrate. He is normally on Lantus at home. 6. Hypertension. Continue beta kenneth & lisinopril DVT ppx: Lovenox. DISPOSITION: Will downgrade and obtain Psych c/s once stable. Anticipate d/c w/i the week. VS, I&O, 24H, Fishbone Vital Signs/I&O Vital Signs Date Time Temp Pulse Resp B/P (MAP) Pulse Ox O2 Delivery O2 Flow Rate FiO2 05/06/18 08:43 78 152/98 05/06/18 07:57 97.3 20 98 05/02/18 21:18 Room Air I&O- Last 24 Hours up to 6 AM 05/06/18 06:00 Intake Total 1160 ml Output Total 1150 ml Balance 10 ml Laboratory Data 24H LABS Laboratory Tests 2 05/05/18 11:13: Bedside Glucose (Misc Panel) 147H 05/05/18 18:08: Magnesium Level 1.8 05/05/18 18:13: Bedside Glucose (Misc Panel) 125H 05/05/18 20:07: Bedside Glucose (Misc Panel) 132H 05/06/18 05:33: Nucleated Red Blood Cells % (auto) 0.0, Anion Gap 6L, Glomerular Filtration Rate > 60.0, Blood Urea Nitrogen 12, Creatinine 0.79, Sodium Level 133L, Potassium Level 3.9, Chloride Level 99, Carbon Dioxide Level 28, Calcium Level 8.3L, Magnesium Level 1.5L CBC/BMP Laboratory Tests 05/06/18 05:33 Red Blood Count 3.76 L, Mean Corpuscular Volume 88.3, Mean Corpuscular Hemoglobin 29.5, Mean Corpuscular Hemoglobin Concent 33.4, Red Cell Distribution Width 14.6 H, Calcium Level 8.3 L GME ATTESTATION GME ATTESTATION My faculty preceptor for this patient encounter was physically present during the encounter and was fully available. All aspects of the patient interview, examination, medical decision making process, and medical care plan development were reviewed and approved by the faculty preceptor. The faculty preceptor is aware and concurs with the plan as stated in the body of this note and will attest to such by his/her cosignature. CHARLES DIAZ DO May 06, 2018 10:59
[2018-05-06] MEDS: IBUPROFEN 600 MG TAB PO PRN ×2 (11:34→22:16)
[2018-05-06] MEDS: ENOXAPARIN 100MG/1ML SYRINGE (J1650) SC SCH ×2 (11:35→21:43)
--- NOTE | 2018-05-06 15:55 | REP ---
Bilateral knee radiographs: Nine views. History: Swelling and pain. No comparison images. Findings: Five views of each knee demonstrate evidence of large bilateral joint effusions distending the suprapatellar bursa. There is bilateral patellofemoral osteoarthritic spurring. There is mild medial compartment joint space narrowing on the right with osteoarthritis spurring seen medially. Subcortical cyst formation is seen in the medial femoral condyle. On the left there is minimal spurring medially, no significant joint space narrowing is observed. Impression: Bilateral medial and patellofemoral compartment osteoarthritis, right more so than left. Bilateral large joint effusions. Electronically Signed by Alexis Yates MD 05/06/2018 07:20 P
[2018-05-06] MEDS: LISINOPRIL 10 MG TAB PO SCH (21:43)
[2018-05-07] VITALS: BP_SYST 146
[2018-05-07 04:00] VITALS: BP 141/75
[2018-05-07] MEDS: traMADol 50 MG TAB PO PRN (04:22)
[2018-05-07 05:38] LABS: HEMATOCRIT 33.5 % (42.0-52.0); HEMOGLOBIN 11.6 g/dl (13.5-17.5); MEAN CORPUSCULAR HEMOGLOBIN 29.7 pg (27.0-33.0); MEAN CORPUSCULAR HGB CONC 34.6 g/dl (32.0-36.5); MEAN CORPUSCULAR VOLUME 85.7 fl (80.0-96.0); PLATELET COUNT, AUTOMATED 133 10^3/uL (150-450); RED BLOOD COUNT 3.91 10^6/uL (4.30-6.10); WHITE BLOOD COUNT 6.1 10^3/uL (4.0-10.0)
[2018-05-07 05:50] LABS: BLOOD UREA NITROGEN 13 MG/DL (7-18); CALCIUM LEVEL 9.2 MG/DL (8.5-10.1); CARBON DIOXIDE LEVEL 25 MEQ/L (21-32); CHLORIDE LEVEL 100 MEQ/L (98-107); CREATININE FOR GFR 0.77 MG/DL (0.70-1.30); GLOMERULAR FILTRATION RATE > 60.0 (>56); GLUCOSE, FASTING 119 MG/DL (70-100); MAGNESIUM LEVEL 1.5 MG/DL (1.8-2.4); POTASSIUM SERUM 3.6 MEQ/L (3.5-5.1); SODIUM LEVEL 133 MEQ/L (136-145)
[2018-05-07] MEDS: SLF 3 ML SYR IV SCH ×3 (06:00→20:30)
[2018-05-07] MEDS: IBUPROFEN 600 MG TAB PO PRN ×2 (06:08→19:49)
[2018-05-07] MEDS: OXAZEPAM 15 MG CAP PO SCH ×3 (06:09→19:49)
[2018-05-07 08:00] VITALS: BP 162/92
[2018-05-07] MEDS: ENOXAPARIN 100MG/1ML SYRINGE (J1650) SC SCH ×2 (08:57→20:30)
[2018-05-07] MEDS: HumaLOG INSULIN (NovoLOG) PER UNIT SC SCH ×4 (08:59→20:22)
[2018-05-07] MEDS: LEVEMIR (INSULIN DETEMIR) 1 UNITS/0.01ML SC SCH (08:59)
[2018-05-07] MEDS: OMEGA-3 1000MG CAPSULE PO SCH (09:00)
[2018-05-07] MEDS: METOPROLOL TART 25 MG TABLET PO SCH ×2 (09:00→20:29)
[2018-05-07] MEDS: predniSONE 5 MG TAB PO SCH (09:00)
[2018-05-07] MEDS: FOLIC ACID 1 MG TAB PO SCH (09:00)
[2018-05-07] MEDS: MULTIVITAMINS/MINERALS THERAP 1 TAB PO SCH (09:00)
[2018-05-07] MEDS: MAGNESIUM OXIDE 400 MG TAB (MAG-OX) PO SCH ×2 (09:01→20:29)
[2018-05-07] MEDS: MAG SULF 1GM/100ML (MAG RUN) 1 GM in APPROPRIATE DILUENT 1 EA IV SCH ×2 (09:10→10:10)
[2018-05-07 12:16] VITALS: BP 154/86
[2018-05-07 12:59] LABS: ERYTHROCYTE SEDIMENTATION RATE 73 mm/hr (0-20)
[2018-05-07 13:04] VITALS: BP 146/86
--- NOTE | 2018-05-07 17:32 | MHCRPDOC ---
[facility] Consultation Consultation DATE OF CONSULTATION: 05/07/18 CONSULTATION REQUESTED BY: Dr. Ortiz REASON FOR CONSULTATION: Pt. had expressed SI to his GF RELEVANT HISTORY: Patient says he drinks alcohol, about half a liter. Initially he said weekly and then, he said not that frequently. He says his SO doesn't like him to drink alcohol and he was drinking when she yelled at him and then he yelled back. He went to sleep and when he woke up he went and walked the dogs, made coffee and breakfast for him, she got up and he made her breakfast and coffee, then he walked her to the bathroom, helped her to have a shower because she has hip problems. About one hour later he had the policemen at his door and they told him that he had to come with him to the hospital because his GF called saying that he had told her he was going to put two bullets to his brain. PAST PSYCHIATRIC HISTORY: he says he was diagnosed with PTSD several years ago because he was deployed to [facility] and [place] several years ago and [facility]. He says he used to have nightmares and had hypervigilance, which he still has. He still seats with his back against the corner when he goes to a restaurant. He was treated with Zoloft and Buspar but he never felt anything and he was taking 100 mgs of Zoloft and Buspar 10 mgs PO TID PAST MEDICAL HISTORY: HTN, Diabetes FAMILY HISTORY: Mother: in 2006, she had dementia Father: when he was 1.5 years of pancreatitis Siblings: Alive and well, live in [place] Children: Has three stepchildren. One of them is problematic, she steals from him and his GF. The other 2 are fine. PERSONAL AND SOCIAL HISTORY: The patient was born and raised in [place]. Resides in: [place] Marital Status: D , he lives with his girlfriend Children: has three stepchildren Employment: yes, at the [employer] SUBSTANCE ABUSE HISTORY: Smoking: Smokes almost 1 pack/day ETOH: Yes, drinks half liter/week Illicit Drugs: Denies LEGAL HISTORY: Denies MENTAL STATUS EXAMINATION: Patient is a 53-year old male, who is alert, cooperative, dressed in hospital clothes. Speech is spontaneous and fluent, normal in rate, tone and volume. Language skills are good. Thought processes including: intact. Thought content: goal directed, he wants to go to work at the [employer] on the 17, he wants to talk to his GF tonight to see where are they standing. Abstract reasoning, and computation: good. Description of associations: intact. Description of abnormal or psychotic thoughts: denies SI/HI, denies AV hallucinations, denies thought delusions. Judgment: fair Insight: fair. Orientation to x 3. Recent and remote memory: intact. Attention span and concentration: good. Language: appropriate, structured, good vocabulary. Fund of knowledge: average. Mood: anxious Affect: congruent with mood, full, reactive. DIAGNOSIS: 1. Generalized Anxiety disorder 2. H/O PTSD 3. Alcohol use disorder PLAN: 1. Patient doesn't need to be on a 1:1. I believe he has never intended to kill himself and he contracted for safety. I think he and his GF have been under a lot of stress ( she was discharged today from the hospital, she had her hip replaced), she has a daughter that causes problems to both of them and he drinks, even when this is occasional. She doesn't like him to drink and he thinks she told the policemen that he had threatened to kill himself because she wanted him to come to the hospital and get treatment. he agreed to seek treatment. he says he went to years ago and he didn't feel it worked for him but he says [facility]. I offered to start him on them but I don't think he is ready for that. TW told him I think both of them his GF and him need therapy. 2. Patient can be discharged home. Vital Signs Vital Signs Date Time Temp Pulse Resp B/P (MAP) Pulse Ox O2 Delivery O2 Flow Rate FiO2 05/07/18 13:04 80 146/86 05/07/18 12:16 96.7 18 98 05/02/18 21:18 Room Air Laboratory Data 24H Labs Laboratory Tests 2 05/06/18 21:42: Bedside Glucose (Misc Panel) 130H 05/07/18 05:15: Nucleated Red Blood Cells % (auto) 0.0, Erythrocyte Sedimentation Rate 73H, Anion Gap 8, Glomerular Filtration Rate > 60.0, Blood Urea Nitrogen 13, Creatinine 0.77, Sodium Level 133L, Potassium Level 3.6, Chloride Level 100, Carbon Dioxide Level 25, Calcium Level 9.2, Magnesium Level 1.5L, C-Reactive Protein, Quantitative 13.50H 05/07/18 12:14: Bedside Glucose (Misc Panel) 140H Home Medications Current Medications Current Medications Dextrose (Dextrose 50%) 25 ml ASDIRECTED PRN IV SEE LABEL COMMENTS; Start 05/02/18 at 20:00 Diltiazem HCl (Cardizem) 10 mg Q6H PRN IV HR sustained over 120; Start 05/02/18 at 20:00; Stop 05/03/18 at 09:17; Status DC Enoxaparin Sodium (Lovenox) 100 mg Q12H SC Last administered on 05/07/18at 08:57; Start 05/02/18 at 21:00 Fish Oil ([place]-3 (1000mg)) 1 cap DAILY PO Last administered on 05/07/18at 09:00; Start 05/03/18 at 09:00 Folic Acid (Folic Acid) 1 mg DAILY PO Last administered on 05/07/18at 09:00; Start 05/03/18 at 09:00 Glucagon (Glucagon) 1 mg ASDIRECTED PRN SC SEE LABEL COMMENTS; Start 05/02/18 at 20:00 Glucose (Glucose) 16 GM ASDIRECTED PRN PO SEE LABEL COMMENTS; Start 05/02/18 at 20:00 Home Med (Med Rec Complete!) ASDIRECTED XX ; Start 05/02/18 at 19:15; Stop 05/02/18 at 19:15; Status DC Ibuprofen (Advil) 600 mg Q8HP PRN PO PAIN Last administered on 05/07/18at 06:08; Start 05/05/18 at 21:30 Insulin Detemir (Levemir Insulin) 25 units QAM SC Last administered on 05/07/18at 08:59; Start 05/03/18 at 09:00 Insulin Human Lispro (HumaLOG INSULIN) SEE PROTOCOL TABLE AC SC Last admin istered on 05/07/18at 12:22; Start 05/03/18 at 07:30 Insulin Human Lispro (HumaLOG INSULIN) SEE PROTOCOL TABLE QHS SC Last adminis tered on 05/03/18at 01:34; Start 05/03/18 at 00:41 Lisinopril (Prinivil) 5 mg QHS PO Last administered on 05/02/18 22:08; Start at 21:00; Stop 05/03/18 at 12:24; Status DC Lisinopril (Prinivil) 10 mg QHS PO Last administered on 05/06/18 21:43; Start 05/05/18 at 21:00 Lorazepam (Ativan) 2 mg ASDIRECTED PRN PO SEE PROTOCOL Last administered on 05/04/18 09:04; Start 05/02/18 at 20:00; Stop 05/07/18 at 13:50; Status DC Magnesium Oxide (Mag-Ox) 400 mg BID PO Last administered on 05/07/18 09:01; Start 05/03/18 at 09:00 Magnesium Sulfate/ Dextrose 1 gm/IV Miscellaneous Supplies 100 ml @ 100 mls/hr 0700,0800 IV Last administered on 05/03/18 09:18; Start 05/03/18 at 07:00; Stop 05/03/18 at 12:00; Status DC Magnesium Sulfate/ Dextrose 1 gm/IV Miscellaneous Supplies 100 ml @ 100 mls/hr Q1H IV Last administered on 05/05/18 11:12; Start 05/05/18 at 10:00; Stop 05/05/18 at 11:59; Status DC Magnesium Sulfate/ Dextrose 1 gm/IV Miscellaneous Supplies 100 ml @ 100 mls/hr Q1H IV Last administered on 05/07/18at 10:10; Start 05/07/18 at 09:00; Stop 05/07/18 at 10:59; Status DC Metoprolol Tartrate (Lopressor) 5 mg Q5M IV Last administered on 05/02/18 18:39; Start 05/02/18 at 18:00; Stop 05/02/18 at 18:11; Status DC Metoprolol Tartrate (Lopressor) 5 mg Q5M IV Last administered on 05/03/18 10:40; Start 05/03/18 at 10:00; Stop 05/03/18 at 10:06; Status DC Metoprolol Tartrate (Lopressor) 5 mg Q5M IV Last administered on 05/03/18 12:58; Start 05/03/18 at 12:40; Stop 05/03/18 at 12:51; Status DC Metoprolol Tartrate (Lopressor) 5 mg STAT STAT IV Last administered on 05/03/18 09:38; Start 05/03/18 at 09:15; Stop 05/03/18 at 09:17; Status DC Metoprolol Tartrate (Lopressor) 25 mg BID PO Last administered on 05/03/18 09:17; Start 05/03/18 at 09:00; Stop 05/03/18 at 12:24; Status DC Metoprolol Tartrate (Lopressor) 25 mg Q8H PO Last administered on 05/02/18 22:09; Start 05/02/18 at 22:00; Stop 05/03/18 at 01:19; Status DC Metoprolol Tartrate (Lopressor) 75 mg BID PO Last administered on 05/07/18 09:00; Start 05/03/18 at 21:00 Multivitamins (Theragram-M) 1 tab DAILY PO Last administered on 05/07/18 09:00; Start 05/03/18 at 09:00 Nicotine (Nicoderm Cq 21mg) 1 patch DAILYPRN PRN TD NICOTINE WITHDRAWAL Last administered on 05/06/18 08:51; Start 05/02/18 at 20:00 Ondansetron HCl (ZOFRAN INJection) 4 mg Q6HP PRN IV NAUSEA OR VOMITING Last administered on 05/03/18 21:23; Start 05/02/18 at 19:30 Oxazepam (Serax) 15 mg Q12H PO ; Start 05/07/18 at 18:00 Oxazepam (Serax) 15 mg Q8H PO Last administered on 05/07/18 06:09; Start 05/06/18 at 14:00; Stop 05/07/18 at 13:48; Status DC Oxazepam (Serax) 30 mg Q8H PO Last administered on 05/06/18 05:38; Start 05/03/18 at 06:00; Stop 05/06/18 at 12:21; Status DC Prednisone (Deltasone) 5 mg DAILY PO Last administered on 05/07/18 09:00; Start 05/05/18 at 09:00 Sodium Chloride 1,000 ml @ 100 mls/hr Q10H IV Last administered on 05/05/18at 03:20; Start 05/02/18 at 20:00; Stop 05/05/18 at 09:25; Status DC Sodium Chloride (Saline Lock Flush) 2 ml ASDIRECTED PRN IV SEE LABEL COMMENTS; Start 05/05/18 at 10:15 Sodium Chloride (Saline Lock Flush) 2 ml SLF IV Last administered on 05/07/18at 14:29; Start 05/05/18 at 14:00 Thiamine HCl (Thiamine HCl) 100 mg BID PO Last administered on 05/05/18at 08:12; Start 05/02/18 at 21:00; Stop 05/05/18 at 09:01; Status DC Tramadol HCl (Ultram) 50 mg BID PRN PO pain Last administered on 05/07/18at 04:22; Start 05/02/18 at 20:00 Scheduled Aspirin (Aspirin 81) 81 Mg Tab, 81 MG PO DAILY, (Reported) Atenolol (Atenolol) 25 Mg Tab, 75 MG PO BID, (Reported) Insulin Glargine (Lantus Solostar) 100 Unit/Ml Inj, 25 UNIT SC QAM, (Reported) Lisinopril (Lisinopril) 20 Mg Tab, 10 MG PO QHS, (Reported) [place] 3 Polyunsat Fatty Acids (Fish Oil 1000 mg) 1 Cap Cap, 1 CAP PO DAILY, (Reported) Rosuvastatin Calcium (Rosuvastatin Calcium) 40 Mg Tab, 40 MG PO QPM, (Reported) Vitamin D (Drisdol) 50,000 Unit Cap, 50,000 UNIT PO Q2WK, (Reported) TAKES EVERY OTHER FRIDAY Scheduled PRN Hydroxyzine HCl (Hydroxyzine HCl) 50 Mg Tab, 50 MG PO BID PRN for ANXIETY, (Reported) Ibuprofen (Ibuprofen) 800 Mg Tab, 800 MG PO Q6H PRN for PAIN, (Reported) Prednisone (Prednisone) 5 Mg Tab, 5 MG PO DAILY PRN for INFLAMMATION, (Reported) Tramadol HCl (Tramadol HCl) 50 Mg Tab, 50 TAB PO BID PRN for pain, (Reported) Allergies Coded Allergies: Bupropion (Verified Allergy, Unknown, 07/27/16) patient becomes fidgity ADELA GAGE MD May 07, 2018 17:32
[2018-05-07 19:07] VITALS: BP 142/86
--- NOTE | 2018-05-07 19:59 | IPNPDOC ---
Date Seen The patient was seen on 05/07/18. Progress Note SUBJECTIVE: Pt examined at bedside with sitter in room. No events overnight. HR continues to remain stable and in NSR. He feels joint pain is better. Eager to go home. OBJECTIVE: VITAL SIGNS: see below GENERAL: Resting comfortably in bed, in no acute distress. Alert and oriented times three. Fully conversant. HEENT: Normocephalic, atraumatic. Extraocular muscles intact. Moist mucous membranes. NECK: Supple. CARDIOVASCULAR: Regular rate and rhythm. Normal S1 and S2. No audible murmurs. LUNGS: Clear bilaterally with equal chest rise. No wheezes, rhonchi or rales. ABDOMEN: Soft, nontender, nondistended. Positive bowel sounds. EXTREMITIES: No clubbing, cyanosis or edema. Swelling of knees, l>r. Ankle swelling appears better. SKIN: No evidence of rashes, lesions or ulcerations. ASSESSMENT AND PLAN: 1. Acute alcohol withdrawal. Pt continues being stable and no further episodes of withdrawal during this stay. No hallucinations or aggression. He regularly drinks half a liter of hard liquor a day. Continue Clinical Stephen Withdrawal Assessment (CIWA) merritt col. Will wean down Serax and d/c Ativan, as he has not required it since 05/04. Thiamine, folate, multivitamin on board. 2. Tachycardia with paroxysmal atrial flutter. No further episodes of Aflutter for past few davila. HR stable in NSR. Continue Lopressor 75 mg po bid & Lovenox. 3. Questionable suicidal ideation. When he was initially brought in by [facility] ([facility]), had reported he had thoughts of harming himself. He again denies this consistently since he has been here. A sitter is present in the room. Will continue to closely monitor. He denies any thoughts of harming himself or anyone else or any previous suicidal attempts. Will obtain Psych c/s today. 4. Gouty arthropathy & chronic arthritic pain improved since restarting home po prednisone 5mg. Left knee continues to bother him and appears swollen. XRay reveals b/l effusions. Ortho consulted. 5. Insulin-dependent diabetes mellitus type 2. Continue insulin sliding scale and consistent carbohydrate hydrate. He is normally on Lantus at home. 6. Hypertension. Continue beta kenneth & lisinopril DVT ppx: Lovenox. DISPOSITION: Will downgrade and obtain Psych & Ortho c/s. Anticipate d/c in next few days. VS, I&O, 24H, Fishbone Vital Signs/I&O Vital Signs Date Time Temp Pulse Resp B/P (MAP) Pulse Ox O2 Delivery O2 Flow Rate FiO2 05/07/18 19:07 98.9 108 18 142/86 (104) 97 05/02/18 21:18 Room Air I&O- Last 24 Hours up to 6 AM 05/07/18 05:59 Intake Total 840 ml Output Total 575 ml Balance 265 ml Laboratory Data 24H LABS Laboratory Tests 2 05/06/18 21:42: Bedside Glucose (Misc Panel) 130H 05/07/18 05:15: Nucleated Red Blood Cells % (auto) 0.0, Erythrocyte Sedimentation Rate 73H, Anion Gap 8, Glomerular Filtration Rate > 60.0, Blood Urea Nitrogen 13, Creatinine 0.77, Sodium Level 133L, Potassium Level 3.6, Chloride Level 100, Carbon Dioxide Level 25, Calcium Level 9.2, Magnesium Level 1.5L, C-Reactive Protein, Quantitative 13.50H 05/07/18 12:14: Bedside Glucose (Misc Panel) 140H 05/07/18 17:40: Bedside Glucose (Misc Panel) 139H CBC/BMP Laboratory Tests 05/07/18 05:15 Red Blood Count 3.91 L, Mean Corpuscular Volume 85.7, Mean Corpuscular H emoglobin 29.7, Mean Corpuscular Hemoglobin Concent 34.6, Red Cell Distribution Width 14.7 H, Calcium Level 9.2 GME ATTESTATION GME ATTESTATION My faculty preceptor for this patient encounter was physically present during the encounter and was fully available. All aspects of the patient interview, examination, medical decision making process, and medical care plan development were reviewed and approved by the faculty preceptor. The faculty preceptor is aware and concurs with the plan as stated in the body of this note and will attest to such by his/her cosignature. CHARLES DIAZ DO May 07, 2018 19:59
[2018-05-07] MEDS: LISINOPRIL 10 MG TAB PO SCH (20:29)
[2018-05-08] MEDS: traMADol 50 MG TAB PO PRN (02:23)
--- NOTE | 2018-05-08 04:22 | REP ---
Clinical: Right arm pain. Technique: Real time arteaga scale and color Doppler evaluation using linear high frequency transducer. Findings: Ultrasound examination of the right upper extremity deep venous structures including jugular, subclavian, axillary, brachial, basilic, and cephalic veins demonstrate normal patency/compressibility , color flow and wave patterns in response to normal respiration and augmentation. Impression: Normal examination. No evidence for deep venous thrombosis to the right upper extremity. Electronically Signed by Filipe Altamirano MD 05/08/2018 04:13 A
[2018-05-08 04:53] VITALS: BP 160/104
[2018-05-08] MEDS: OXAZEPAM 15 MG CAP PO SCH (04:55)
[2018-05-08] MEDS: SLF 3 ML SYR IV SCH (04:56)
[2018-05-08 04:58] VITALS: BP 160/104
[2018-05-08 05:38] LABS: HEMATOCRIT 35.6 % (42.0-52.0); HEMOGLOBIN 12.1 g/dl (13.5-17.5); MEAN CORPUSCULAR HEMOGLOBIN 29.7 pg (27.0-33.0); MEAN CORPUSCULAR VOLUME 87.5 fl (80.0-96.0); PLATELET COUNT, AUTOMATED 165 10^3/uL (150-450); RED BLOOD COUNT 4.07 10^6/uL (4.30-6.10); WHITE BLOOD COUNT 6.2 10^3/uL (4.0-10.0)
[2018-05-08 05:57] LABS: BLOOD UREA NITROGEN 15 MG/DL (7-18); C REACTIVE PROTEIN QUANTITATIV 8.85 MG/DL (0.00-0.30); CALCIUM LEVEL 9.1 MG/DL (8.5-10.1); CARBON DIOXIDE LEVEL 28 MEQ/L (21-32); CHLORIDE LEVEL 101 MEQ/L (98-107); CREATININE FOR GFR 0.79 MG/DL (0.70-1.30); GLOMERULAR FILTRATION RATE > 60.0 (>56); GLUCOSE, FASTING 117 MG/DL (70-100); POTASSIUM SERUM 4.3 MEQ/L (3.5-5.1); SODIUM LEVEL 135 MEQ/L (136-145)
[2018-05-08 06:02] LABS: ERYTHROCYTE SEDIMENTATION RATE 85 mm/hr (0-20)
[2018-05-08] MEDS: IBUPROFEN 600 MG TAB PO PRN (06:55)
[2018-05-08] MEDS: HumaLOG INSULIN (NovoLOG) PER UNIT SC SCH (08:22)
[2018-05-08 08:23] VITALS: BP 162/90
[2018-05-08] MEDS: OMEGA-3 1000MG CAPSULE PO SCH (08:23)
[2018-05-08] MEDS: FOLIC ACID 1 MG TAB PO SCH (08:23)
[2018-05-08] MEDS: METOPROLOL TART 25 MG TABLET PO SCH (08:23)
[2018-05-08] MEDS: predniSONE 5 MG TAB PO SCH (08:23)
[2018-05-08] MEDS: LEVEMIR (INSULIN DETEMIR) 1 UNITS/0.01ML SC SCH (08:23)
[2018-05-08] MEDS: ENOXAPARIN 100MG/1ML SYRINGE (J1650) SC SCH (08:24)
[2018-05-08] MEDS: MAGNESIUM OXIDE 400 MG TAB (MAG-OX) PO SCH (08:24)
[2018-05-08] MEDS: MULTIVITAMINS/MINERALS THERAP 1 TAB PO SCH (08:24)
[2018-05-08] MEDS ORDERED: NICO21PAT TD (09:20)
[2018-05-08] MEDS ORDERED: VITMTA PO (09:20)
[2018-05-08] MEDS ORDERED: THIA100TA PO (09:20)
[2018-05-08] MEDS ORDERED: FOLI1TAB11 PO (09:20)
[2018-05-08] MEDS ORDERED: MAG400TA PO (09:20)
[2018-05-08] MEDS ORDERED: METO1TAB87 PO (09:20)
[2018-05-08] MEDS ORDERED: XARE20TA PO (09:20)
--- NOTE | 2018-05-08 13:01 | CR ---
DATE OF CONSULTATION: 05/07/2018 CHIEF COMPLAINT: Bilateral knee swelling. HISTORY OF PRESENT ILLNESS: This is a 53-year-old man who complains of a 5 day history of bilateral knee swelling. He was urgently brought to the hospital after his called EMS stating that he suicidal ideations. He was noted to be in new onset atrial flutter as well as noted to be intoxicated. Upon questioning he states that the swelling in the knees was spontaneous with no trauma. Minimal pain at this point. Slowly decreasing in terms of the amount of swelling over the last 4 days. No other joints that are swollen for him. He denies chest pain, cough, fever, chills, shortness of breath or urinary symptoms or any other associated symptoms. He is stable to walk weight bearing as tolerated. PAST MEDICAL HISTORY: Includes bilateral knee osteoarthritis, elbow gout, as well as hypertension and diabetes. For his knee pain that has been ongoing on a chronic basis related to osteoarthritis he has been seeing apparently some surgeons at the [facility] and also in [place]. MEDICATIONS AT HOME: Include aspirin, atenolol, ibuprofen as needed, Tramadol and Lantus 25 units at night. ALLERGIES: Allergic reaction listed to BUPROPION. SURGICAL HISTORY: Appendectomy. SOCIAL HISTORY: [id number] day smoker. He uses alcohol and abuses it. He denies any elicit drug use. REVIEW OF SYSTEMS: Again was negative for fever, chills, flu like illness or any other associated symptoms. PHYSICAL EXAMINATION: Temperature throughout his entire visit was not elevated. This morning 97.6 and this afternoon 96.7. Blood pressure 154/86, pulse rate 80, 98% on room air. Respiratory rate 18. He is alert and oriented times three. He is reasonably well groomed. His mood and affect is a little bit withdrawn but he is easy to converse with. Lower extremity alignment is normal. He is able to walk with a normal non-antalgic gait. Inspection of his knees and both lower extremities revealed moderate amount of swelling on the left side, a little bit less on the right side. He has obvious effusions but really no overlying redness. Only slight warmth but no signs of infection. No open wounds. Nothing at the ankles or feet and no redness tracking down the lower extremities. Range of motion was nearly full 0-120 degrees on left side, 0-130 on the right side. He did state that he had bilateral ACL injuries in the past but really his knees were stiff more than anything with normal Marii and normal anterior drawer. MCL, LCL and PCL were all stable and solid. There is really no pain with micromotion of either knee. He had normal sensation of his feet, superficial and deep peroneal nerve as well as saphenous, sural and tibial. Feet were warm and well perfused with good pedal pulses. He is able to wiggle his toes and dorsiflex and plantarflex his feet on both sides. Laboratory examination during his entire stay revealed white blood cell count around 6. This morning it was 6.1. Hemoglobin stable at 11.6. ASR slightly high today 73, but there is no previous values to trend. Chemistries revealed CRP of 13.5. Urinary appears negative but elevated protein and glucose. There is no obvious positive urine culture. Radiographs are reviewed of both knees, four views each. This shows moderate sized effusions on both knees. There is mild to moderate tricompartmental osteoarthritis with tibial spine spurring. It appears to be in groove. There is no obvious fracture or other soft tissue abnormalities aside from the medium sized effusions. Duplex venous ultrasound was performed that was negative for deep vein thrombosis in his lower extremities. ASSESSMENT AND PLAN: This 53-year-old man appears to be have bilateral knee acute inflammatory reaction. He may have gout but regardless he is on Prednisone currently being treated for this by the stock lifter. Really this is settling down for him and slowly getting better over the last few days and in the absence of any clinical signs or symptoms if infection I do not think it is worth while to do an aspirate of either knee at this point. We will see how this goes. I recommend trending his C-reactive protein over the next few days to make sure that it is trending down. I do not see any reason to start antibiotics either but I would recommend continued clinical monitoring of his knees to make sure that this fully resolves. One could also start any number of inflammatories i.e naproxen for this to try and take down from the swelling, elevate the knees and OG wrap as needed for gentle compression on the knee. I can see this man every couple of days while he is in the hospital to follow his progress. ROGELIO
--- NOTE | 2018-05-08 14:30 | DS.PDOC ---
Discharge Summary General Date of Admission May 02, 2018 at 19:30 Date of Discharge 05/08/18 Attending Physician: HONG SARGENT MD Specialist/Consultants Involve Dr. Doll-Ortho Dr. Brooks-Psych Discharge Summary PROCEDURES PERFORMED DURING STAY: 2D Echo ADMITTING DIAGNOSES: 1. Acute alcohol intoxication with reported suicidal statements 2. Tachycardia with paroxysmal atrial flutter. DISCHARGE DIAGNOSES: 1. Acute alcohol withdrawal 2. Inflammatory b/l knee effusions 3. New-onset Paroxysmal AFlutter Gouty arthropathy & chronic arthritic pain Insulin-dependent diabetes mellitus type 2 Hypertension. COMPLICATIONS/CHIEF COMPLAINT: Alcohol Intoxication, Atrial Flutter. HISTORY OF PRESENT ILLNESS: 51-year-old male was brought in to the ER after his called EMS stating that he had suicidal ideations. He denied this throug hout his stay, stating his fabricated the story. He is a chronic drinker, drinking up to 8 glasses of vodka at times, and often half a liter of Tequila. On admission his TABATHA was 0.344 and he was visibly intoxicated. He was also found to be in a new onset of atrial flutter. He had stated that he has had palpitations on and off for the previous days prior to admission. He had no other complaints. No tremors, auditory or tactile hallucinations. He stated that he has gone into alcohol withdrawal the past, but never had withdrawal seizures. He has attempted to do alcohol rehabilitation in the past, but did not like the facility. HOSPITAL COURSE: Due to his new onset a flutter, he was started on pressor and Cardizem. His [id number] score was 2, given has hypertension and diabetes, and he was started on therapeutic Lovenox. He was started on CIWA protocol with prn Ativan and scheduled Serax, and started on multivitamin, thiamine, folate. A sitter was placed due to his reported suicidal ideation. He was noted to be in a flutter with a heart rate 130s to 160s the next 2 mornings and having increased sweating, agitation, anxiety. His last drink was prior to the day of admission. His Lopressor doses were adjusted, after which his heart rate was controlled. He spontaneously converted to NSR, and overall improved over the next few days. During his stay, he did complain of bilateral knee and ankle pain more so on his left leg. Imaging was done which revealed a heel spur the left foot, as well as bilateral knee effusions. Ortho was consulted, and believes this was all inflammatory and that he can follow up in outpatient setting. Psych was also consulted due to the reported suicidal ideation. They do not believe that he is truly suicidal or has any thoughts to harm himself. He was cleared for discharge, with instructions to follow up closely with his PCP and psych at the [place]. He was fully educated on continuing his new medications, including Xarelto for his paroxysmal atrial flutter. He is instructed to return to the ER for any emergency. DISCHARGE MEDICATIONS: Please see below. ALLERGIES: Please see below. PHYSICAL EXAMINATION ON DISCHARGE: VITAL SIGNS: Please see below. GENERAL: Resting comfortably in bed, in no acute distress. Alert and oriented times three. Fully conversant. HEENT: Normocephalic, atraumatic. Extraocular muscles intact. Moist mucous membranes. NECK: Supple. CARDIOVASCULAR: Regular rate and rhythm. Normal S1 and S2. No audible murmu rs. LUNGS: Clear bilaterally with equal chest rise. No wheezes, rhonchi or rales. ABDOMEN: Soft, nontender, nondistended. Positive bowel sounds. EXTREMITIES: No clubbing, cyanosis or edema. Swelling of knees, l>r. Mild b/l ankle swelling SKIN: No evidence of rashes, lesions or ulcerations. LABORATORY DATA: Please see below. IMAGING: * 05/02/2018 CXR: No acute cardiopulmonary process appreciated. * 05/03/2018 echo: 1. Low normal global left ventricular systolic function. 2. Mildly enlarged left atrium with mild mitral regurgitation. 3. Trace tricuspid regurgitation. 4. Trace pericardial effusion noted in limited views. * 05/04/2018 left ankle x-ray: Diffuse swelling. Tibiotalar spurring. Heel spur. No acute bony abnormality. No compelling evidence of joint effusion. * 05/05/2018 Doppler b/l lower extremity: Negative bilateral lower extremity duplex venous ultrasound. No evidence of deep vein thrombosis. * 05/06/2018 knee x-ray: Bilateral medial and patellofemoral compartment osteoarthritis, right more so than left. Bilateral large joint effusions. * 05/07/2018 right arm Doppler: Normal examination. No evidence for deep venous thrombosis to the right upper extremity. PROGNOSIS: Good ACTIVITY: As tolerated. DIET: 2g sodium DISPOSITION: 01 Home, Self-Care. DISCHARGE INSTRUCTIONS: 1. F/U wit PCP & Psych at the [place] 2. Return to ER for emergency or thoughts to harm self or others 3. Take meds as prescribed. Your new meds are: Xarelto, Lopessor, Folate, Multivitamin, Thiamine, Nicotine patch, and Magnesium Oxide. DISCHARGE CONDITION: Stable. TIME SPENT ON DISCHARGE: Greater than 35 minutes. Vital Signs/I&Os Vital Signs Date Time Temp Pulse Resp B/P (MAP) Pulse Ox O2 Delivery O2 Flow Rate FiO2 05/08/18 08:23 88 162/90 05/08/18 04:58 99.4 18 98 05/02/18 21:18 Room Air I&O- Last 24 Hours up to 6 AM 05/08/18 06:00 Intake Total 600 ml Output Total 900 ml Balance -300 ml Laboratory Data Labs 24H Laboratory Tests 2 05/07/18 17:40: Bedside Glucose (Misc Panel) 139H 05/07/18 20:18: Bedside Glucose (Misc Panel) 161H 05/08/18 05:21: Nucleated Red Blood Cells % (auto) 0.0, Erythrocyte Sedimentation Rate 85H, Anion Gap 6L, Glomerular Filtration Rate > 60.0, Blood Urea Nitrogen 15, Creatinine 0.79, Sodium Level 135L, Potassium Level 4.3, Chloride Level 101, Carbon Dioxide Level 28, Calcium Level 9.1, C-Reactive Protein, Quantitative 8.85H CBC/BMP Laboratory Tests 05/08/18 05:21 Red Blood Count 4.07 L, Mean Corpuscular Volume 87.5, Mean Corpuscular Hemoglobin 29.7, Mean Corpuscular Hemoglobin Concent 34.0, Red Cell Distribution Width 15.3 H, Calcium Level 9.1 FSBS Laboratory Tests Test 05/07/18 17:40 05/07/18 20:18 Range/Units Bedside Glucose (Misc Panel) 139 161 70-105 MG/DL Discharge Medications Scheduled Aspirin (Aspirin 81) 81 Mg Tab, 81 MG PO DAILY, (Reported) Folic Acid (Folic Acid) 1 Mg Tab, 1 MG PO DAILY Insulin Glargine (Lantus Solostar) 100 Unit/Ml Inj, 25 UNIT SC QAM, (Reported) Lisinopril (Lisinopril) 20 Mg Tab, 10 MG PO QHS, (Reported) Magnesium Oxide (Magnesium Oxide) 400 Mg Tab, 400 MG PO BID Metoprolol Tartrate (Metoprolol Tartrate) 25 Mg Tab, 75 MG PO BID Multivitamins *[facility] STOCKED* (Thera M Plus *[facility] STOCKED*) 1 Tab Tab, 1 TAB PO DAILY Mcalpin 3 Polyunsat Fatty Acids (Fish Oil 1000 mg) 1 Cap Cap, 1 CAP PO DAILY, (Rep orted) Rivaroxaban (Xarelto) 20 Mg Tab, 20 MG PO DAILY with food Rosuvastatin Calcium (Rosuvastatin Calcium) 40 Mg Tab, 40 MG PO QPM, (Reported) Thiamine Hcl (Thiamine Hcl) 100 Mg Tab, 100 MG PO DAILY Vitamin D (Drisdol) 50,000 Unit Cap, 50,000 UNIT PO Q2WK, (Reported) TAKES EVERY OTHER FRIDAY Scheduled PRN Hydroxyzine HCl (Hydroxyzine HCl) 50 Mg Tab, 50 MG PO BID PRN for ANXIETY, (Reported) Ibuprofen (Ibuprofen) 800 Mg Tab, 800 MG PO Q6H PRN for PAIN, (Reported) Nicotine (Nicotine Transdermal Syst) 21 Mg/24 Hr Dis, 1 PATCH TD DAILYPRN PRN for NICOTINE WITHDRAWAL Prednisone (Prednisone) 5 Mg Tab, 5 MG PO DAILY PRN for INFLAMMATION, (Reported) Tramadol HCl (Tramadol HCl) 50 Mg Tab, 50 TAB PO BID PRN for pain, (Reported) Allergies Coded Allergies: Bupropion (Verified Allergy, Unknown, 07/27/16) patient becomes fidgity GME ATTESTATION GME ATTESTATION My faculty preceptor for this patient encounter was physically present during the encounter and was fully available. All aspects of the patient interview, examination, medical decision making process, and medical care plan development were reviewed and approved by the faculty preceptor. The faculty preceptor is aware and concurs with the plan as stated in the body of this note and will attest to such by his/her cosignature. CHARLES DIAZ DO May 08, 2018 14:29
== END 2018-05-08 11:18 | disposition home or self-care (01) | DRG 201 ==
LOC: M ED 17:28 → M ED INP 19:30 → M PCU 21:31
PROVIDERS: ADMIT Internal Medicine; ATTEND Internal Medicine
DX: I48.92 Unspecified atrial flutter (principal); I10 Essential (primary) hypertension; E11.9 Type 2 diabetes mellitus without complications; F17.200 Nicotine dependence, unspecified, uncomplicated; F10.129 Alcohol abuse with intoxication, unspecified; M10.472 Other secondary gout, left ankle and foot; M25.461 Effusion, right knee; M25.462 Effusion, left knee; F41.1 Generalized anxiety disorder; M17.0 Bilateral primary osteoarthritis of knee; G89.29 Other chronic pain; Z79.82 Long term (current) use of aspirin; Z79.4 Long term (current) use of insulin; Z79.891 Long term (current) use of opiate analgesic; Z79.899 Other long term (current) drug therapy; Z88.8 Allergy status to other drugs, medicaments and biological substances; Z91.82 Personal history of military deployment

== ENCOUNTER 2019-07-06 07:17 | Inpatient (IN) | payer BC, OTHER ==
[~2019-07-06] VITALS: Ht 172.7 cm; Wt 100.8 kg
[~2019-07-06 07:17] MED LIST changes: +ASPI81TA26 PO; +DRIS50003 PO; +FISH7.5C PO; +FOLI1TAB11 PO; +HYDR1TAB33 PO; +IBUP80TA PO; +LANTINJ4 SC; +LISI-538 PO; +LISI-542 PO; +MAG400TA PO; +METF500T13 PO; +METO1TAB87 PO; +NICO21PAT TD; +PRED5TA PO; +ROSU40TA4 PO; +THIA100TA PO; +TRAM50TA2 PO; +VITMTA PO; +XARE20TA PO; +motrin PO
[2019-07-06] MEDS ORDERED: vitamin d PO (07:55)
[2019-07-06 08:01] LABS: HEMATOCRIT 44.8 % (42.0-52.0); HEMOGLOBIN 15.3 g/dl (13.5-17.5); MEAN CORPUSCULAR HEMOGLOBIN 31.2 pg (27.0-33.0); MEAN CORPUSCULAR HGB CONC 34.2 g/dl (32.0-36.5); MEAN CORPUSCULAR VOLUME 91.2 fl (80.0-96.0); PLATELET COUNT, AUTOMATED 195 10^3/uL (150-450); RED BLOOD COUNT 4.91 10^6/uL (4.30-6.10); WHITE BLOOD COUNT 6.2 10^3/uL (4.0-10.0)
[2019-07-06] MEDS ORDERED: METO37.5 PO (08:14)
[2019-07-06] MEDS ORDERED: METO100T5 PO (08:14)
[2019-07-06 08:22] LABS: AMPHETAMINES LEVEL URINE NEGATIVE (NEGATIVE); BARBITURATES URINE NEGATIVE (NEGATIVE); BENZODIAZEPINES URINE NEGATIVE (NEGATIVE); CANNABINOIDS URINE NEGATIVE (NEGATIVE); COCAINE METABOLITE URINE NEGATIVE (NEGATIVE); METHADONE URINE NEGATIVE (NEGATIVE); OPIATES URINE NEGATIVE (NEGATIVE); PHENCYCLIDINE URINE NEGATIVE (NEGATIVE)
[2019-07-06] MEDS ORDERED: METOPROLOL TART 25 MG TABLET PO ONE (08:30)
[2019-07-06 08:36] LABS: ACETAMINOPHEN LEVEL < 2.0 UG/ML (10.0-30.0); ALBUMIN 3.8 GM/DL (3.2-5.2); ALT/SGPT 76 U/L (12-78); BILIRUBIN,DIRECT 0.2 MG/DL (0.0-0.2); BILIRUBIN,TOTAL 0.3 MG/DL (0.2-1.0); BLOOD UREA NITROGEN 23 MG/DL (7-18); CALCIUM LEVEL 8.8 MG/DL (8.5-10.1); CARBON DIOXIDE LEVEL 28 MEQ/L (21-32); CHLORIDE LEVEL 108 MEQ/L (98-107); CREATININE FOR GFR 1.21 MG/DL (0.70-1.30); ETHYL ALCOHOL (ETHANOL) 0.342 % (0.000-0.010); GLOMERULAR FILTRATION RATE > 60.0 (>56); GLUCOSE, FASTING 161 MG/DL (70-100); SALICYLATE LEVEL 3.8 MG/DL (5.0-30.0); SODIUM LEVEL 142 MEQ/L (136-145); TOTAL PROTEIN 7.9 GM/DL (6.4-8.2)
[2019-07-06] MEDS: FOLIC ACID 1 MG TAB PO SCH ×3 (09:00→09:34)
[2019-07-06] MEDS ORDERED: MULTIVITAMINS/MINERALS THERAP 1 TAB PO SCH (09:00)
[2019-07-06] MEDS ORDERED: LORazepam 2 MG TAB PO PRN (09:15)
[2019-07-06] MEDS: THIAMINE 100 MG TAB PO SCH ×3 (09:28→22:17)
[2019-07-06] MEDS ORDERED: traMADol 50 MG TAB PO ONE (09:45)
[2019-07-06] MEDS ORDERED: ASPIRIN 81 MG CHEW TABLET PO ONE (09:45)
[2019-07-06] MEDS ORDERED: IBUPROFEN 400 MG TAB PO ONE ×2 (10:00→16:30)
[2019-07-06] MEDS ORDERED: ACETAMINOPHEN 325 MG TAB PO ONE (10:00)
[2019-07-06] MEDS ORDERED: hydrOXYzine 50 MG TAB PO ONE (12:45)
[2019-07-06] MEDS ORDERED: ONDANSETRON 4 MG ORAL DISINTEGRATING TAB (Q0162 PER 1MG) PO ONE (15:30)
[2019-07-06] MEDS ORDERED: NICOTINE 21MG/24HR 1 EA TRANSDERMAL TD ONE (16:30)
[2019-07-06] MEDS ORDERED: ACETAMINOPHEN TAB 650MG DOSE (2X325MG) PO ONE (16:30)
[2019-07-06] MEDS ORDERED: OXAZEPAM 15 MG CAP PO ONE (17:00)
[2019-07-06] MEDS ORDERED: lisinopriL 10 MG TAB PO ONE (18:30)
[2019-07-06] MEDS ORDERED: lisinopriL 20 MG TAB PO SCH (21:00)
[2019-07-07] VITALS (14 sets, daily range): BP systolic 108–186; BP diastolic 68–111
[2019-07-07] MEDS ORDERED: traZODone 50 MG TAB PO PRN (00:45)
[2019-07-07] MEDS ORDERED: ACETAMINOPHEN TAB 650MG DOSE (2X325MG) PO PRN (00:45)
[2019-07-07] MEDS ORDERED: MAALOX 30 ML SUSP *UDC PO PRN (00:45)
[2019-07-07] MEDS ORDERED: MOM 30ML SUSPENSION UDC PO PRN (00:45)
[2019-07-07] MEDS ORDERED: TRAZ-186 PO (01:17)
[2019-07-07] MEDS ORDERED: BUSP10TA PO (01:17)
[2019-07-07] MEDS ORDERED: C 50TAB PO (01:17)
[2019-07-07] MEDS ORDERED: CETI10TA4 PO (01:17)
[2019-07-07] MEDS ORDERED: IBUP-1426 PO (01:17)
[2019-07-07] MEDS ORDERED: ATEN50TA2 PO (01:17)
[2019-07-07] MEDS ORDERED: VITAD1000T PO (01:17)
[2019-07-07] MEDS ORDERED: SERT50TA29 PO (01:17)
[2019-07-07] MEDS ORDERED: MAGN400T2 PO (01:17)
[2019-07-07] MEDS ORDERED: ASPI-262 PO (01:17)
[2019-07-07] MEDS ORDERED: VIAG100T PO (01:17)
[2019-07-07] MEDS: LORazepam 2 MG TAB PO PRN ×5 (02:16→12:57)
[2019-07-07] MEDS: THIAMINE 100 MG TAB PO SCH ×3 (02:22→20:42)
[2019-07-07] MEDS ORDERED: traMADol 50 MG TAB PO PRN ×2 (02:45→23:45)
[2019-07-07] MEDS ORDERED: IBUPROFEN 800 MG TAB PO PRN (02:45)
[2019-07-07] MEDS ORDERED: predniSONE 5 MG TAB PO PRN (02:45)
[2019-07-07] MEDS ORDERED: PILL CUTTER 1 EACH XX PRN (03:00)
[2019-07-07] MEDS ORDERED: ASPIRIN 325 MG TAB PO SCH (09:00)
[2019-07-07] MEDS: APIXABAN 5 MG TAB (ELIQUIS) PO SCH ×3 (09:00→20:43)
[2019-07-07] MEDS: VITAMIN D 1,000 INTERNATIONAL UNITS TABLET PO SCH (09:21)
[2019-07-07] MEDS: MAGNESIUM OXIDE 400 MG TAB (MAG-OX) PO SCH ×2 (09:21→20:42)
[2019-07-07] MEDS: OXAZEPAM 15 MG CAP PO SCH ×3 (09:21→20:40)
[2019-07-07] MEDS: atenoloL 50 MG TAB PO SCH ×2 (09:23→20:41)
[2019-07-07] MEDS: OMEGA-3 1000MG CAPSULE PO SCH ×2 (09:23→20:40)
[2019-07-07] MEDS: SERTRALINE HCL 50 MG TAB PO SCH (09:25)
[2019-07-07] MEDS: MULTIVITAMINS/MINERALS THERAP 1 TAB PO SCH (09:25)
[2019-07-07] MEDS: FOLIC ACID 1 MG TAB PO SCH (09:27)
[2019-07-07] MEDS: busPIRone 10 MG TAB PO SCH ×2 (09:27→20:42)
[2019-07-07] MEDS: CETIRIZINE (ZyrTEC) 10 MG TAB PO SCH (09:27)
[2019-07-07] MEDS: NICOTINE 21MG/24HR 1 EA TRANSDERMAL TD SCH (09:28)
[2019-07-07] MEDS: ASPIRIN 81 MG ENTERIC TAB PO SCH (09:57)
[2019-07-07] MEDS: ASCORBIC ACID 500 MG TAB PO SCH (10:12)
--- NOTE | 2019-07-07 10:33 | ECGEPIP ---
[facility] - ED Test Date: 2019-07-06 Pat Name: SHAJI LARA Department: Room: - Gender: Male Wool Hanker: vinicio : 1965 Requested By: Ciara Grier Order Number: [id number] Reading MD: Diogenes Castillo Measurements Intervals [place] Rate: 81 P: DC: 0 QRS: 66 QRSD: 105 T: 23 QT: 372 QTc: 433 Interpretive Statements ATRIAL FLUTTER NONSPECIFIC T-WAVE ABNORMALITY RHYTHM CHANGE COMPARED TO 05/04/18 Electronically Signed on 07-07-2019 10:33:41 EDT by Diogenes Castillo
[2019-07-07] MEDS ORDERED: GLUCOSE 4 GM CHEW TABLET PO PRN (14:30)
[2019-07-07] MEDS ORDERED: GLUCAGON FOR INJ 1 MG VIAL (J1610) SC PRN (14:30)
[2019-07-07] MEDS ORDERED: DEXTROSE 50% 50 ML SYRINGE IV PRN (14:30)
--- NOTE | 2019-07-07 14:30 | HPEPDOC ---
[facility] Medical History & Physical Date of Admission Jul 07, 2019 Date of Service: Jul 07, 2019 Attending Physician: CHEN GUTIERREZ MD History and Physical CHIEF COMPLAINT: Admitted to inpatient mental health unit for suicidal ideation and alcohol withdrawal HISTORY OF PRESENT ILLNESS: 54-year-old male with past medical history of alcohol abuse, atrial fibrillation, depression, hypertension and diabetes [facility] is admitted to inpatient mental health unit for suicidal ideation and alcohol withdrawal. Patient reports worsening depression or increased alcohol intake recently, significant other was concerned that he was suicidal, which is why he was brought to the hospital. Currently, he reports experiencing alcohol withdrawal symptoms consistent with shaking, sweating, feeling uneasy and craving alcohol. He has been hospitalized previously focal withdrawal, denies having alcohol withdrawal seizures or requiring intubation. He has no other place at this time, denies any shortness of breath, chest pain, nausea, vomiting, abdominal pain or diarrhea. 10 point review of system is negative except for above PAST MEDICAL HISTORY: 1. Alcohol abuse. 2. Depression. 3. Hypertension. 4. Atrial fibrillation. 5. Diabetes mellitus PAST SURGICAL HISTORY: 1. Appendectomy. SOCIAL HISTORY: Current smoker, smokes 1 pack per day. Alcoholic Previous drug use, marijuana FAMILY HISTORY: Negative for cancer or heart disease ALLERGIES: Please see below. HOME MEDICATIONS: Please see below. PHYSICAL EXAMINATION: VITAL SIGNS: Please see below. GENERAL: No distress HEENT: Normocephalic, atraumatic, moist mucous membranes NECK: Supple CARDIOVASCULAR EXAMINATION: S1, S2, tachycardic RESPIRATORY EXAMINATION: Tachypneic, Clear to auscultation, no wheezing ABDOMINAL EXAMINATION: Soft, nontender, nondistended, positive bowel sounds EXTREMITIES: Range of motion intact SKIN: Sweating NEUROLOGICAL EXAMINATION: Alert and oriented 3, no focal deficits, resting tremor of distal extremities noted bilaterally, worse with active movement PSYCHIATRIC EXAMINATION: Calm and cooperative LABORATORY DATA: See below. MICROBIOLOGY: Please see below. ASSESSMENT: 54-year-old male with multiple medical comorbidities admitted for suicidal ideation and alcohol withdrawal. PLAN: 1. Alcohol withdrawal. Last drink was over 24 hours ago, I'm concerned patient's withdrawal will worsen over the next 24-48 hours, recommended patient be moved to medical floor for closer monitoring, telemetry monitoring, continuous pulse ox as he will likely require a higher benzodiazepine dose, patient refused to be transferred at this time, risks and benefits were explained to the patient including seizure/, patient understands and wishes to stay on the psych floor at this time. Continue CIWA protocol, please call if symptoms worsening and we can reconsider bringing the patient to medical floor. 2. Atrial fibrillation. Patient was reportedly on Eliquis for a brief period of time, then stopped taking it because he ran out of prescription and never had it refilled. Patient has a high risk for stroke and anticoagulation is recommended, patient wishes to think about it and does not want any anticoagulation at this time, risks and benefits were explained, including stroke, patient understood and continues to refuse at this time. Slightly elevated heart rate is likely due to alcohol withdrawal, continue atenolol and benzodiazepines as needed for rate control. 3. Diabetes mellitus. He is supposed be on insulin in the outpatient setting, but is not compliant, continue sliding scale insulin coverage with meals and at bedtime. 4. Hypertension. Continue home regimen, BP is temporarily going to be elevated due to alcohol withdrawal, will monitor and treat accordingly. 5. Suicidal ideation. Management as per primary team Vital Signs Vital Signs Date Time Temp Pulse Resp B/P (MAP) Pulse Ox O2 Delivery O2 Flow Rate FiO2 07/07/19 13:48 80 134/82 07/07/19 09:54 18 98 Room Air 07/07/19 06:15 99.1 Laboratory Data Labs 24H Laboratory Tests 2 07/07/19 07:08: Bedside Glucose (Misc Panel) 119H Home Medications Scheduled Ascorbic Acid (Vitamin C) 500 Mg Tablet, 500 MG PO DAILY Aspirin (Aspirin) 325 Mg Tablet, 0.25 TAB PO DAILY Atenolol (Atenolol) 50 Mg Tablet, 75 MG PO BID Buspirone HCl (Buspirone HCl) 10 Mg Tablet, 10 MG PO BID Cetirizine HCl (Cetirizine HCl) 10 Mg Tablet, 10 MG PO DAILY Cholecalciferol (Vitamin D3) (Vitamin D3) 1,000 Unit Tablet, 1,000 UNITS PO DAILY Lisinopril (Lisinopril) 20 Mg Tab, 10 MG PO QHS Magnesium Oxide (Magnesium Oxide) 400 Mg Tablet, 400 MG PO BID [place]-3/Dha/Epa/Fish Oil (Fish Oil EC 1,000 mg Softgel) 1 Cap Cap, 1 CAP PO BID Rosuvastatin Calcium (Rosuvastatin Calcium) 40 Mg Tab, 40 MG PO QHS Sertraline HCl (Sertraline HCl) 50 Mg Tablet, 50 MG PO DAILY Scheduled PRN Hydroxyzine HCl (Hydroxyzine HCl) 50 Mg Tab, 50 MG PO BID PRN for ANXIETY Ibuprofen (Ibuprofen) 200 Mg Tablet, 800 MG PO TID PRN for PAIN Prednisone (Prednisone) 5 Mg Tab, 5 MG PO DAILY PRN for INFLAMMATION Sildenafil Citrate (Viagra) 100 Mg Tablet, 100 MG PO DAILY PRN for ERECTILE DYSFUNCTION Tramadol HCl (Tramadol HCl) 50 Mg Tab, 50 TAB PO BID PRN for pain Trazodone HCl (Trazodone HCl) 50 Mg Tablet, 50 MG PO QHS PRN for SLEEP Allergies Coded Allergies: bupropion (Verified Allergy, Unknown, unknown, 07/06/19) A-FIB/CHADSVASC A-FIB History Current/History of A-Fib/PAF?: Yes Current PO Anticoag Therapy: Yes CHEN GUTIERREZ MD Jul 07, 2019 14:30
--- NOTE | 2019-07-07 15:24 | MHHPEPDOC ---
[facility] History & Physical History and Physical DATE OF ADMISSION: Jul 07, 2019 at 00:38 LEGAL STATUS AT ADMISSION: 9.39 Date of : 1965 Date of Service: 07/07/2019 Chief Complaint "It was the vodka." History of Present Illness Simón is a 54-year-old man with a long-standing history of presenting to the ER with SI in the context of alcohol intoxication. He presented to the ER on 07/06/19 with a similar comportment. The patient's significant other had apparently called the police due to the patient being intoxicated and making suicidal and homicidal comments. Once the patient presented to the ER, he denied SI and HI. He was admitted due to an abundance of caution. On evaluation, he continues to deny SI or HI and states that he is safe to go home. He has consistently denied SI to nursing screens. He minimized his alcohol use, stating that normally it is not an issue when he just drinks beer, but "it was the vodka" that made things transpire yesterday. 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 Currently treated with 50 mg of sertraline along with buspirone and trazodone. S tates that he follows up with an outpatient [facility]. States that he has not seen his psychiatrist since last year, and he has not spoken with his therapist since the initial intake at an unspecified amount of time ago. Past Medical History Diagnoses: Has hypertension and diabetes. Medications: Is on atenolol, aspirin, lisinopril, rosuvastatin, tramadol, and of vitamin supplements Allergies: unknown reaction to bupropion Family, Social, History (PFSH) Denies a family history of psychiatric illness. Is , currently lives with significant other. Smokes 1 pack per day of tobacco, states that he has up to 9 beers a day, denies all other drug use. Review of Systems 1. Constitutional: negative. 2. Eyes: negative. 3. Ears/Nose/Mouth/Throat: negative. 4. Cardiovascular: negative. 5. Respiratory: negative. 6. Gastrointestinal: negative. 7. Genitourinary: negative. 8. Muscular: negative. 9. Integumentary: negative. 10. Neurological: negative. 11. Endocrine: negative. 12. Hematologic/Lymphatic: negative. 13. Allergies/Immune: negative. 14. Psychiatric: Screened negative for depression, psychosis, anxiety, renuka, endorses a history of combat-related trauma, but denies nightmares, flashbacks, avoidance behavior, hypervigilance, and mood and cognitive changes. Physical Exam Vitals: see below General appearance: Appears staged age with good hygiene and grooming; dressed in seasonally-appropriate attire MSK: No orofacial ticks or other abnormal movements noted. Speech: WNL for rate, volume, fluency, and amount Thought process: linear, organized, and goal-directed Thought content: No SI/HI/AVH/delusional thinking elicited Description of patient's judgement and insight: Poor. cognition: Grossly intact. Affect: Euthymic, reactive. Mood: "Fine." Data Medical Records/Labs/Diagnostic Tests Reviewed Medical Decision Making Problem/Condition: Alcohol use disorder, severe. Comment: Precontemplative with regards to seeking substance use treatment, denied outpatient substance use referral as well as naltrexone. Plan: Continue to monitor CIWA. Problem/Condition: Suicidal ideation. Comment: Resolved. Plan: Observe for safety 1 more day with tentative discharge date of 07/08/19. Problem/Condition: tobacco use disorder, unspecified Comment: stable Plan: offer cessation treatment Consultation Time Spent: 70 minutes, with greater than 50% of time spent in counseling/coordination of care. INITIAL TREATMENT PLAN: 1. Patient was admitted on a 9.39 2. Complete history was obtained. 3. With patients permission, family will be contacted and database will be expanded. 4. Patients medication regimen will be reviewed and changed accordingly. 5. Patient will be provided with protected environment. 6. Patient will be treated with individual, group, and milieu therapies. 7. Patient will receive supportive psych-education. 8. Discharge planning will commence immediately. 9. Outpatient follow-up treatment will be strongly recommended. 10. The initial treatment plan will focus initially on: * Depression. * Risk for suicide. * Substance abuse. ESTIMATED LENGTH OF STAY: 1-2 DAYS. Vital Signs Vital Signs Date Time Temp Pulse Resp B/P (MAP) Pulse Ox O2 Delivery O2 Flow Rate FiO2 07/07/19 10:24 64 162/108 07/07/19 09:54 18 98 Room Air 07/07/19 06:15 99.1 Laboratory Data 24H Labs Laboratory Tests 2 07/07/19 07:08: Bedside Glucose (Misc Panel) 119H FSBS Laboratory Tests Test 07/07/19 07:08 Range/Units Bedside Glucose (Misc Panel) 119 70-105 MG/DL Medications Scheduled Ascorbic Acid (Vitamin C) 500 Mg Tablet, 500 MG PO DAILY, (Reported) Aspirin (Aspirin) 325 Mg Tablet, 0.25 TAB PO DAILY, (Reported) Atenolol (Atenolol) 50 Mg Tablet, 75 MG PO BID, (Reported) Buspirone HCl (Buspirone HCl) 10 Mg Tablet, 10 MG PO BID, (Reported) Cetirizine HCl (Cetirizine HCl) 10 Mg Tablet, 10 MG PO DAILY, (Reported) Cholecalciferol (Vitamin D3) (Vitamin D3) 1,000 Unit Tablet, 1,000 UNITS PO DAILY, (Reported) Lisinopril (Lisinopril) 20 Mg Tab, 10 MG PO QHS, (Reported) Magnesium Oxide (Magnesium Oxide) 400 Mg Tablet, 400 MG PO BID, (Reported) [place]-3/Dha/Epa/Fish Oil (Fish Oil EC 1,000 mg Softgel) 1 Cap Cap, 1 CAP PO BID, (Reported) Rosuvastatin Calcium (Rosuvastatin Calcium) 40 Mg Tab, 40 MG PO QHS, (Reported) Sertraline HCl (Sertraline HCl) 50 Mg Tablet, 50 MG PO DAILY, (Reported) Scheduled PRN Hydroxyzine HCl (Hydroxyzine HCl) 50 Mg Tab, 50 MG PO BID PRN for ANXIETY, (Reported) Ibuprofen (Ibuprofen) 200 Mg Tablet, 800 MG PO TID PRN for PAIN, (Reported) Prednisone (Prednisone) 5 Mg Tab, 5 MG PO DAILY PRN for INFLAMMATION, (Reported) Sildenafil Citrate (Viagra) 100 Mg Tablet, 100 MG PO DAILY PRN for ERECTILE DYSFUNCTION, (Reported) Tramadol HCl (Tramadol HCl) 50 Mg Tab, 50 TAB PO BID PRN for pain, (Reported) Trazodone HCl (Trazodone HCl) 50 Mg Tablet, 50 MG PO QHS PRN for SLEEP, (Reported) Allergies Coded Allergies: bupropion (Verified Allergy, Unknown, unknown, 07/06/19) GME ATTESTATION GME ATTESTATION My faculty preceptor for this patient encounter was physically present during the encounter and was fully available. All aspects of the patient interview, examination, medical decision making process, and medical care plan development were reviewed and approved by the faculty preceptor. The faculty preceptor is aware and concurs with the plan as stated in the body of this note and will attest to such by his/her cosignature. AVELINO VINCENT MD Jul 07, 2019 11:50
[2019-07-07] MEDS ORDERED: ACETAMINOPHEN 500 MG TAB PO PRN (17:30)
[2019-07-07] MEDS: HumaLOG INSULIN (NovoLOG) PER UNIT SC SCH (17:44)
[2019-07-07] MEDS ORDERED: ROSUVASTATIN 10 MG TAB (CRESTOR) PO SCH (18:00)
[2019-07-07] MEDS: IBUPROFEN 800 MG TAB PO PRN (18:01)
[2019-07-07] MEDS ORDERED: lisinopriL 10 MG TAB PO SCH (21:00)
[2019-07-07] MEDS ORDERED: HumaLOG INSULIN (NovoLOG) PER UNIT SC SCH (21:00)
[2019-07-08 03:14] VITALS: BP 158/98
[2019-07-08] MEDS: hydrOXYzine 50 MG TAB PO PRN ×2 (03:18→06:24)
[2019-07-08] MEDS: IBUPROFEN 800 MG TAB PO PRN (06:25)
[2019-07-08 06:32] VITALS: BP 160/90
[2019-07-08] MEDS: HumaLOG INSULIN (NovoLOG) PER UNIT SC SCH (06:42)
[2019-07-08] MEDS: NICOTINE 21MG/24HR 1 EA TRANSDERMAL TD SCH (09:00)
[2019-07-08 09:03] VITALS: BP 160/90
[2019-07-08] MEDS: busPIRone 10 MG TAB PO SCH (09:31)
[2019-07-08] MEDS: VITAMIN D 1,000 INTERNATIONAL UNITS TABLET PO SCH (09:31)
[2019-07-08] MEDS: SERTRALINE HCL 50 MG TAB PO SCH (09:32)
[2019-07-08] MEDS: APIXABAN 5 MG TAB (ELIQUIS) PO SCH (09:32)
[2019-07-08] MEDS: CETIRIZINE (ZyrTEC) 10 MG TAB PO SCH (09:32)
[2019-07-08] MEDS: ASCORBIC ACID 500 MG TAB PO SCH (09:32)
[2019-07-08 09:33] VITALS: BP 160/90
[2019-07-08] MEDS: THIAMINE 100 MG TAB PO SCH (09:33)
[2019-07-08] MEDS: MAGNESIUM OXIDE 400 MG TAB (MAG-OX) PO SCH (09:33)
[2019-07-08] MEDS: atenoloL 50 MG TAB PO SCH (09:33)
[2019-07-08] MEDS: MULTIVITAMINS/MINERALS THERAP 1 TAB PO SCH (09:33)
[2019-07-08] MEDS: OXAZEPAM 15 MG CAP PO SCH (09:33)
[2019-07-08] MEDS: FOLIC ACID 1 MG TAB PO SCH (09:33)
[2019-07-08] MEDS: ASPIRIN 81 MG ENTERIC TAB PO SCH (09:33)
[2019-07-08] MEDS: OMEGA-3 1000MG CAPSULE PO SCH (09:38)
[2019-07-08] MEDS ORDERED: NICO21PAT TD (10:01)
[2019-07-08] MEDS ORDERED: OXAZ15CA4 PO (10:01)
--- NOTE | 2019-07-08 14:18 | MHDSPDOC ---
[facility] Discharge Summary Discharge Summary DATE OF ADMISSION: Jul 07, 2019 at 00:38 DATE OF DISCHARGE: 07/08/19 Reason for Admission Suicidal ideation in the context of intoxication. Discharge Diagnoses Alcohol use disorder, severe. Tobacco use disorder, unspecified. Hospital and treatment course: Simón was admitted out of an abundance of caution for SI in the context of alcohol intoxication. His psychotropics of sertraline, buspirone, and trazodone were continued. He was placed on CIWA protocol and prescribed as needed oxazepam. He consistently denied SI while on the unit. Discharge assessment: On the day of discharge, he denied any safety concerns. He denied any treatments or referral for alcohol and tobacco use. He remains in the precontemplative stages for both of these addictions. On the day of discharge, the patient denied any further symptoms of depression, renuka, anxiety and psychosis, including changes in sleep, mood, anhedonia, fatigue, anxiety, active/passive SI, HI, AH, VH, and PI. Patient denied any side effects from medications, including POLLOCK, n/v, rash, etc and stated that the medications had helped. Understanding was expressed of the risks and benefits. The patient at the time of discharge did not meet criteria for involuntary adm ission/extension due to having a normal mental status exam, fair insight into the situation, They are engaged in the discharge process, as well as being friendly and amenable in behavioral control and havent been engaging in any observed concerning behavior or ideation recently. They decline voluntary extension/admission at this time and must be discharged in good moises, as un able to make a case for holding the patient against their will. They may have historical risk factors of admissions and other interactions with psychiatry however, those are not modifiable from a clinical perspective. The patient will need to be discharged in good moises. Exam Vitals: see below General: Well dressed with good hygiene Speech: Spontaneous and fluid Thought processes: Linear and logical MSK: Smooth and coordinated gait, no signs of tremors or involuntary orofacial movements Thought content: Future orientated Abstract reasoning, and computation: Intact Description of associations: Intact Description of abnormal or psychotic thoughts: Denies any suicidal or homicidal ideation. Denies any auditory or visual hallucinations. Does not appear to be responding to internal stimuli. Does not appear to be endorsing any bizarre or paranoid ideation. Judgment: fair Insight: fair Orientation: Alert and orientated 3 Cognition: Grossly normal Recent and remote memory: Intact Attention span and concentration: Intact Fund of knowledge: Adequate Mood: "okay" Affect: Euthymic with a full range Review of Systems Depression: negative Anxiety: negative Renuka: negative Psychosis: negative Constitutional: Negative Cardiovascular: Negative Respiratory: Negative Gastrointestinal: Negative Genitourinary: Negative Muscular: Negative Neurological: Negative Endocrine: Negative Allergies/Immune: Negative The amount of time spent in the coordination of care for this patient was approximately 30 minutes. Vital Signs/I&Os Vital Signs Date Time Temp Pulse Resp B/P (MAP) Pulse Ox O2 Delivery O2 Flow Rate FiO2 07/08/19 09:33 79 160/90 07/08/19 06:32 96.5 18 98 Room Air Laboratory Data Labs 24H Laboratory Tests 2 07/07/19 17:13: Bedside Glucose (Misc Panel) 165H 07/07/19 19:55: Bedside Glucose (Misc Panel) 120H 07/08/19 06:04: Bedside Glucose (Misc Panel) 126H Medications Scheduled Ascorbic Acid (Vitamin C) 500 Mg Tablet, 500 MG PO DAILY, (Reported) Aspirin (Aspirin) 325 Mg Tablet, 0.25 TAB PO DAILY, (Reported) Atenolol (Atenolol) 50 Mg Tablet, 75 MG PO BID, (Reported) Buspirone HCl (Buspirone HCl) 10 Mg Tablet, 10 MG PO BID, (Reported) Cetirizine HCl (Cetirizine HCl) 10 Mg Tablet, 10 MG PO DAILY, (Reported) Cholecalciferol (Vitamin D3) (Vitamin D3) 1,000 Unit Tablet, 1,000 UNITS PO DAILY, (Reported) Lisinopril (Lisinopril) 20 Mg Tab, 10 MG PO QHS, (Reported) Magnesium Oxide (Magnesium Oxide) 400 Mg Tablet, 400 MG PO BID, (Reported) Nicotine (Nicotine Patch) 21 Mg Patch.td24, 1 PATCH TD DAILY for tobacco for 30 Days, #30 [place]-3/Dha/Epa/Fish Oil (Fish Oil EC 1,000 mg Softgel) 1 Cap Cap, 1 CAP PO BID, (Reported) Oxazepam (Oxazepam) 15 Mg Capsule, 30 MG PO TID for withdrawl for 5 Days, #20 take 4 cap for 1 day, then 3 for 1 day and then 2 for 1 day and then 1 cap for 1 day then stop Rosuvastatin Calcium (Rosuvastatin Calcium) 40 Mg Tab, 40 MG PO QHS, (Reported) Sertraline HCl (Sertraline HCl) 50 Mg Tablet, 50 MG PO DAILY, (Reported) Scheduled PRN Hydroxyzine HCl (Hydroxyzine HCl) 50 Mg Tab, 50 MG PO BID PRN for ANXIETY, (Reported) Ibuprofen (Ibuprofen) 200 Mg Tablet, 800 MG PO TID PRN for PAIN, (Reported) Prednisone (Prednisone) 5 Mg Tab, 5 MG PO DAILY PRN for INFLAMMATION, (Reported) Sildenafil Citrate (Viagra) 100 Mg Tablet, 100 MG PO DAILY PRN for ERECTILE DYSFUNCTION, (Reported) Tramadol HCl (Tramadol HCl) 50 Mg Tab, 50 TAB PO BID PRN for pain, (Reported) Trazodone HCl (Trazodone HCl) 50 Mg Tablet, 50 MG PO QHS PRN for SLEEP, (Reported) Allergies Coded Allergies: bupropion (Verified Allergy, Unknown, unknown, 07/06/19) GME ATTESTATION GME ATTESTATION My faculty preceptor for this patient encounter was physically present during the encounter and was fully available. All aspects of the patient interview, examination, medical decision making process, and medical care plan development were reviewed and approved by the faculty preceptor. The faculty preceptor is aware and concurs with the plan as stated in the body of this note and will attest to such by his/her cosignature. ATTENDING NOTE I agree with Dr. Montaño's assessment and plan for discharge, my assessment as below The patient at the time of discharge did not meet criteria for involuntary admission/extension due to having a normal mental status exam, fair insight into the situation, They are engaged in the discharge process, as well as being friendly and amenable in behavioral control and havent been engaging in any observed concerning behavior or ideation recently. They decline voluntary extension/admission at this time and must be discharged in good moises, as Im unable to make a case for holding the patient against their will. They may have historical risk factors of admissions and other interactions with psychiatry however, those are not modifiable from a clinical perspective. The patient will need to be discharged in good moises. AVELINO MONTAÑO MD Jul 08, 2019 10:26 ЮЛИЯ BURTON DO Jul 08, 2019 16:15
== END 2019-07-08 11:45 | disposition home or self-care (01) | DRG 880 ==
LOC: M ED 07:17 → M ED INP 07-07 00:38 → M PSY 07-07 02:00
PROVIDERS: ADMIT Psychiatry & Neurology Psychiatry; ATTEND Psychiatry & Neurology Addiction Medicine
DX: R45.851 Suicidal ideations (principal); F10.10 Alcohol abuse, uncomplicated; F17.200 Nicotine dependence, unspecified, uncomplicated; Z79.899 Other long term (current) drug therapy; Z79.82 Long term (current) use of aspirin; Z88.6 Allergy status to analgesic agent; F32.9 Major depressive disorder, single episode, unspecified; I10 Essential (primary) hypertension; I48.91 Unspecified atrial fibrillation; E11.9 Type 2 diabetes mellitus without complications; R45.850 Homicidal ideations

== ENCOUNTER 2019-11-27 20:57 | Emergency (ER) | payer OTHER ==
[~2019-11-27] VITALS: Ht 172.7 cm; Wt 100.0 kg
[~2019-11-27 20:57] MED LIST changes: +ASPI-262 PO; +ATEN50TA2 PO; +BUSP10TA PO; +C 50TAB PO; +CETI10TA4 PO; +D31000TA2 PO; +IBUP-1426 PO; +MAGN400T2 PO; +METO100T5 PO; +METO37.5 PO; +OXAZ15CA4 PO; +SERT50TA29 PO; +TRAZ-186 PO; +VIAG100T PO; +vitamin d PO
[2019-11-27 21:25] LABS: HEMATOCRIT 36.4 % (42.0-52.0); HEMOGLOBIN 12.2 g/dl (13.5-17.5); MEAN CORPUSCULAR HEMOGLOBIN 30.7 pg (27.0-33.0); MEAN CORPUSCULAR HGB CONC 33.5 g/dl (32.0-36.5); MEAN CORPUSCULAR VOLUME 91.5 fl (80.0-96.0); PLATELET COUNT, AUTOMATED 118 10^3/uL (150-450); RED BLOOD COUNT 3.98 10^6/uL (4.30-6.10); WHITE BLOOD COUNT 6.9 10^3/uL (4.0-10.0)
[2019-11-27 21:51] LABS: AMPHETAMINES LEVEL URINE NEGATIVE (NEGATIVE); BARBITURATES URINE NEGATIVE (NEGATIVE); BENZODIAZEPINES URINE NEGATIVE (NEGATIVE); CANNABINOIDS URINE NEGATIVE (NEGATIVE); COCAINE METABOLITE URINE NEGATIVE (NEGATIVE); METHADONE URINE NEGATIVE (NEGATIVE); OPIATES URINE NEGATIVE (NEGATIVE); PHENCYCLIDINE URINE NEGATIVE (NEGATIVE)
[2019-11-27 22:04] LABS: ACETAMINOPHEN LEVEL < 2.0 UG/ML (10.0-30.0); ALBUMIN 3.6 GM/DL (3.2-5.2); ALT/SGPT 21 U/L (12-78); BILIRUBIN,DIRECT 0.3 MG/DL (0.0-0.2); BILIRUBIN,TOTAL 0.8 MG/DL (0.2-1.0); BLOOD UREA NITROGEN 18 MG/DL (7-18); CALCIUM LEVEL 8.9 MG/DL (8.5-10.1); CARBON DIOXIDE LEVEL 26 MEQ/L (21-32); CHLORIDE LEVEL 110 MEQ/L (98-107); CREATININE FOR GFR 1.27 MG/DL (0.70-1.30); ETHYL ALCOHOL (ETHANOL) 0.261 % (0.000-0.010); GLOMERULAR FILTRATION RATE > 60.0 (>56); GLUCOSE, FASTING 143 MG/DL (70-100); POTASSIUM SERUM 3.6 MEQ/L (3.5-5.1); SALICYLATE LEVEL 2.5 MG/DL (5.0-30.0); SODIUM LEVEL 145 MEQ/L (136-145); TOTAL PROTEIN 7.5 GM/DL (6.4-8.2)
[2019-11-27] MEDS ORDERED: OXAZEPAM 10 MG CAP PO ONE (22:15)
[2019-11-28] MEDS ORDERED: IBUPROFEN 600MG TAB PO ONE
[2019-11-28] MEDS ORDERED: LORazepam 2 MG TAB PO PRN
[2019-11-28] MEDS ORDERED: ASPIRIN 81 MG CHEW TABLET PO ONE (08:15)
[2019-11-28] MEDS ORDERED: atenoloL 25 MG TAB PO ONE (08:15)
[2019-11-28] MEDS ORDERED: traMADol 50 MG TAB PO ONE (08:30)
[2019-11-28] MEDS ORDERED: FOLIC ACID 1 MG TAB PO SCH (09:00)
[2019-11-28] MEDS ORDERED: THIAMINE 100 MG TAB PO SCH (09:00)
[2019-11-28] MEDS ORDERED: MULTIVITAMINS/MINERALS THERAP 1 TAB PO SCH (09:00)
[2019-11-28 09:06] VITALS: BP 138/94
== END 2019-11-28 09:07 | disposition home or self-care (01) ==
LOC: M ED 20:57
DX: F10.120 Alcohol abuse with intoxication, uncomplicated (principal); F43.10 Post-traumatic stress disorder, unspecified; F99 Mental disorder, not otherwise specified; F17.210 Nicotine dependence, cigarettes, uncomplicated; Z88.8 Allergy status to other drugs, medicaments and biological substances; Z79.899 Other long term (current) drug therapy; Z79.82 Long term (current) use of aspirin
CPT/HCPCS: 36415; 80048; 80076; 80307; 84443; 85027; 99284; G0480

== ENCOUNTER 2019-12-13 16:44 | Emergency (ER) | payer OTHER ==
[~2019-12-13] VITALS: Ht 172.7 cm; Wt 86.4 kg
[2019-12-13 17:58] LABS: HEMATOCRIT 36.8 % (42.0-52.0); HEMOGLOBIN 12.2 g/dl (13.5-17.5); MEAN CORPUSCULAR HEMOGLOBIN 30.9 pg (27.0-33.0); MEAN CORPUSCULAR HGB CONC 33.2 g/dl (32.0-36.5); MEAN CORPUSCULAR VOLUME 93.2 fl (80.0-96.0); PLATELET COUNT, AUTOMATED 182 10^3/uL (150-450); RED BLOOD COUNT 3.95 10^6/uL (4.30-6.10); WHITE BLOOD COUNT 6.7 10^3/uL (4.0-10.0)
[2019-12-13 18:09] LABS: AMPHETAMINES LEVEL URINE NEGATIVE (NEGATIVE); BARBITURATES URINE NEGATIVE (NEGATIVE); BENZODIAZEPINES URINE NEGATIVE (NEGATIVE); CANNABINOIDS URINE NEGATIVE (NEGATIVE); COCAINE METABOLITE URINE NEGATIVE (NEGATIVE); METHADONE URINE NEGATIVE (NEGATIVE); OPIATES URINE NEGATIVE (NEGATIVE); PHENCYCLIDINE URINE NEGATIVE (NEGATIVE)
[2019-12-13 18:21] LABS: ACETAMINOPHEN LEVEL < 2.0 UG/ML (10.0-30.0); ALBUMIN 3.6 GM/DL (3.2-5.2); ALT/SGPT 55 U/L (12-78); BILIRUBIN,DIRECT 0.2 MG/DL (0.0-0.2); BILIRUBIN,TOTAL 0.3 MG/DL (0.2-1.0); BLOOD UREA NITROGEN 21 MG/DL (7-18); CARBON DIOXIDE LEVEL 24 MEQ/L (21-32); CHLORIDE LEVEL 117 MEQ/L (98-107); CREATININE FOR GFR 1.24 MG/DL (0.70-1.30); ETHYL ALCOHOL (ETHANOL) 0.455 % (0.000-0.010); GLOMERULAR FILTRATION RATE > 60.0 (>56); GLUCOSE, FASTING 136 MG/DL (70-100); SALICYLATE LEVEL 3.5 MG/DL (5.0-30.0); SODIUM LEVEL 149 MEQ/L (136-145); THYROID STIMULATING HORMONE 0.465 uIU/ML (0.358-3.740); TOTAL PROTEIN 7.5 GM/DL (6.4-8.2)
[2019-12-13] MEDS ORDERED: atenoloL 25 MG TAB PO ONE (18:30)
[2019-12-13] MEDS ORDERED: lisinopriL 10 MG TAB PO ONE (18:30)
[2019-12-13] MEDS ORDERED: NICOTINE 21MG/24HR 1 EA TRANSDERMAL TD ONE (20:15)
[2019-12-13] MEDS ORDERED: OXAZEPAM 15 MG CAP PO ONE (21:00)
[2019-12-14] MEDS ORDERED: traMADol 50 MG TAB PO ONE (00:30)
[2019-12-14] MEDS ORDERED: METAL LOCK LOOP XX ONE (05:43)
[2019-12-14] MEDS ORDERED: IBUPROFEN 600MG TAB PO ONE (05:45)
[2019-12-14] MEDS ORDERED: OXAZEPAM 15 MG CAP PO ONE (05:45)
[2019-12-14 08:14] VITALS: BP 141/81
== END 2019-12-14 08:16 | disposition home or self-care (01) ==
LOC: M ED 16:44 → EDBD 16:44 → M ED 12-14 08:16
DX: F10.129 Alcohol abuse with intoxication, unspecified (principal); I48.91 Unspecified atrial fibrillation; E11.9 Type 2 diabetes mellitus without complications; I10 Essential (primary) hypertension; F17.210 Nicotine dependence, cigarettes, uncomplicated; E78.9 Disorder of lipoprotein metabolism, unspecified; Z79.82 Long term (current) use of aspirin; Z79.899 Other long term (current) drug therapy; Z88.8 Allergy status to other drugs, medicaments and biological substances
CPT/HCPCS: 36415; 80048; 80076; 80307; 84443; 85027; 99284; G0480

== ENCOUNTER 2021-12-01 15:34 | Inpatient (IN) | payer OTHER ==
[~2021-12-01] VITALS: Ht 172.7 cm; Wt 78.8 kg
[2021-12-01 07:34] VITALS: BP 111/70
[~2021-12-01 15:34] MED LIST changes: -ASPI-262 PO; +ASPI325T59 PO; -D31000TA2 PO; +FISH10005 PO; -FISH7.5C PO; -LISI-538 PO; -LISI-542 PO; +LISI10TA22 PO; -LISI10TA4 PO; +LISI20TA33 PO; +LISI5TAB11 PO; -MAG400TA PO; +MAGN400T35 PO; +VITA100093 PO
[2021-12-01] MEDS ORDERED: traMADol 50 MG TAB PO ONE (18:00)
[2021-12-01] MEDS ORDERED: LIDOCAINE 4% CREAM 5GM (LMX4) TOP ONE (18:00)
[2021-12-01 18:48] LABS: BASO % 0.1 % (0.0-1.0); HEMATOCRIT 32.5 % (42.0-52.0); LYMPH # 1.1 10^3/uL (1.5-5.0); LYMPH % 14.8 % (24.0-44.0); MEAN CORPUSCULAR HEMOGLOBIN 34.5 pg (27.0-33.0); MEAN CORPUSCULAR HGB CONC 33.8 g/dl (32.0-36.5); MEAN CORPUSCULAR VOLUME 101.9 fl (80.0-96.0); MONO # 0.6 10^3/uL (0.0-0.8); MONO % 7.5 % (2.0-8.0); NEUTROPHILS # 5.7 10^3/uL (1.5-8.5); NEUTROPHILS % 77.2 % (36.0-66.0); PLATELET COUNT, AUTOMATED 276 10^3/uL (150-450); RED BLOOD COUNT 3.19 10^6/uL (4.30-6.10); WHITE BLOOD COUNT 7.4 10^3/uL (4.0-10.0)
[2021-12-01] MEDS ORDERED: NS 1,000 ML IV ONE (19:35)
[2021-12-01] MEDS ORDERED: ACET-683 PO (20:19)
[2021-12-01] MEDS ORDERED: VITMTA PO (20:19)
[2021-12-01] MEDS ORDERED: METH-1164 PO (20:19)
[2021-12-01] MEDS ORDERED: HOME MED LIST COMPLETE! XX SCH (20:20)
[2021-12-01 20:39] LABS: RSV AMPLIFICATION NEGATIVE (NEGATIVE)
[2021-12-01] MEDS: INSULIN LISPRO (NovoLOG) PER UNIT SC SCH (21:00)
[2021-12-01] MEDS ORDERED: D5W/0.9% SODIUM CHLORIDE 1,000 ML IV SCH (22:20)
[2021-12-01] MEDS ORDERED: DEXTROSE 50% 50 ML SYRINGE IV PRN (22:20)
[2021-12-01] MEDS ORDERED: LORazepam 2 MG TAB PO PRN (22:20)
[2021-12-01] MEDS ORDERED: GLUCOSE 4GM CHEW TABLET PO PRN (22:20)
[2021-12-01] MEDS ORDERED: GLUCAGON INJ 1MG VIAL SC PRN (22:20)
[2021-12-01] MEDS ORDERED: THIAMINE 200MG 2ML VIAL IM ONE (22:20)
[2021-12-01] MEDS ORDERED: traMADol 50 MG TAB PO PRN (22:25)
[2021-12-01 22:32] LABS: C REACTIVE PROTEIN QUANTITATIV 0.84 MG/DL (0.00-0.30)
[2021-12-01 22:37] LABS: ERYTHROCYTE SEDIMENTATION RATE 63 mm/hr (0-20)
[2021-12-01] MEDS ORDERED: HYDROMORPHONE HCL 0.5 MG/ 0.5 ML SYRINGE (J1170 PER 1) IV PRN (22:40)
[2021-12-01] MEDS ORDERED: PILL CUTTER 1 EACH XX PRN (22:45)
[2021-12-01 22:51] VITALS: BP 144/98
[2021-12-01 22:54] LABS: ALBUMIN 3.2 GM/DL (3.2-5.2); ALT/SGPT 43 U/L (12-78); BILIRUBIN,TOTAL 0.4 MG/DL (0.2-1.0); BLOOD UREA NITROGEN 26 MG/DL (7-18); CARBON DIOXIDE LEVEL 20 MEQ/L (21-32); CHLORIDE LEVEL 113 MEQ/L (98-107); FERRITIN 336 NG/ML (26-388); GLOMERULAR FILTRATION RATE 35.1 (>56); GLUCOSE, FASTING 161 MG/DL (70-100); IRON (FE) 232 UG/DL (65-175); MAGNESIUM LEVEL 1.7 MG/DL (1.8-2.4); PERCENT SATURATION 90.3 % (19.7-50.0); PHOSPHORUS LEVEL 2.6 MG/DL (2.5-4.9); POTASSIUM SERUM 3.8 MEQ/L (3.5-5.1); SODIUM LEVEL 142 MEQ/L (136-145); TOTAL IRON BINDING CAPACITY 257 UG/DL (250-450); TOTAL PROTEIN 7.1 GM/DL (6.4-8.2)
[2021-12-01] MEDS ORDERED: ACETAMINOPHEN TAB 650MG DOSE (2X325MG) PO PRN (23:00)
[2021-12-01] MEDS ORDERED: MAG SULF 1GM/100ML (MAG RUN) 1 GM in IV 1 EA IV ONE (23:30)
[2021-12-01 23:56] LABS: INR 0.92; PROTHROMBIN TIME 12.7 SECONDS (12.7-14.5)
[2021-12-01 23:57] LABS: PARTIAL THROMBOPLASTIN TIME 24.8 SECONDS (25.9-37.0)
[2021-12-02] VITALS (10 sets, daily range): BP systolic 104–153; BP diastolic 63–97
[2021-12-02] MEDS: traZODone 100 MG TAB PO PRN ×2 (00:38→21:12)
[2021-12-02 07:19] LABS: CALCIUM LEVEL 8.9 MG/DL (8.5-10.1); CREATININE FOR GFR 1.96 MG/DL (0.70-1.30); POTASSIUM SERUM 3.2 MEQ/L (3.5-5.1)
[2021-12-02] MEDS: INSULIN LISPRO (NovoLOG) PER UNIT SC SCH ×4 (07:30→21:00)
[2021-12-02] MEDS ORDERED: TRANEXAMIC ACID 100 MG/ML 10ML VIAL As Ordered ONE (08:40)
[2021-12-02] MEDS ORDERED: BUPIVACAINE/EPIN 0.5% 30 ML VIAL As Ordered ONE (08:41)
[2021-12-02] MEDS ORDERED: ceFAZolin 2 GM/D5W 50 ML IV BAG (J0690 PER 500MG) As Ordered ONE (08:41)
[2021-12-02] MEDS ORDERED: VANCOMYCIN 1000MG/20ML VIAL As Ordered ONE (08:51)
[2021-12-02] MEDS: NICOTINE 7 MG/24 HR TRANSDERMAL TD SCH (09:00)
[2021-12-02] MEDS ORDERED: KCL 10MEQ/100ML SWI (KRUN) 10 MEQ in IV 1 EA IV SCH (09:00)
[2021-12-02] MEDS ORDERED: ePHEDrine SULFATE 25 MG/5 ML(5MG/ML) SYRINGE As Ordered ONE ×2 (09:48→10:59)
[2021-12-02] MEDS ORDERED: fentaNYL 100 MCG/2 ML INJECTION As Ordered ONE (09:48)
[2021-12-02] MEDS ORDERED: ROCURONIUM BROMIDE 50 MG/5 ML VIAL As Ordered ONE ×2 (09:48→11:05)
[2021-12-02] MEDS ORDERED: LIDOCAINE 2% 100MG/5ML SDV (FOR ANES.) As Ordered ONE (09:48)
[2021-12-02] MEDS ORDERED: dexameTHASONE 4 MG/ML 1ML VIAL (J1100 PER 1MG) As Ordered ONE (09:48)
[2021-12-02] MEDS ORDERED: ONDANSETRON 4MG 2ML VIAL As Ordered ONE (09:48)
[2021-12-02] MEDS ORDERED: MIDAZOLAM INJ 2MG/2ML VIAL (J2250 PER 1MG) As Ordered ONE (09:48)
[2021-12-02] MEDS ORDERED: propofoL 200 MG/20 ML VIAL As Ordered ONE (09:48)
[2021-12-02] MEDS ORDERED: SUGAMMADEX SODIUM 500 MG/5 ML VIAL (BRIDION) As Ordered ONE (09:48)
[2021-12-02] MEDS ORDERED: HYDROmorphone HCL 2MG/ML 1ML VIAL As Ordered ONE (09:48)
[2021-12-02] MEDS ORDERED: LABETALOL 100MG/20ML VIAL As Ordered ONE (10:07)
[2021-12-02] MEDS ORDERED: ACETAMINOPHEN 1000MG 100ML IV BTL (OFIRMEV) (J0131 PER 10MG) As Ordered ONE (10:09)
[2021-12-02] MEDS ORDERED: hydrALAZINE 20MG/ML 1ML VIAL (J0360 PER 20MG) As Ordered ONE (10:13)
[2021-12-02] MEDS ORDERED: PHENYLephrine 500MCG 5ML (100MCG/ML) SYRINGE As Ordered ONE (10:59)
[2021-12-02] MEDS ORDERED: LR 1,000 ML IV SCH ×2 (11:30→12:20)
[2021-12-02] MEDS: fentaNYL 100 MCG/2 ML INJECTION IV PRN ×4 (12:03→12:20)
[2021-12-02] MEDS ORDERED: traMADol 50 MG TAB PO PRN (12:10)
[2021-12-02] MEDS ORDERED: ONDANSETRON 4MG 2ML VIAL IV PRN (12:10)
[2021-12-02] MEDS ORDERED: SENNA 8.6 MG TAB (SENOKOT) PO PRN (12:10)
[2021-12-02] MEDS: PERCOCET 5MG/325MG TAB PO PRN ×2 (12:14→12:44)
[2021-12-02] MEDS: MORPHINE 2 MG/ML 1ML VIAL IV PRN ×5 (12:18→12:47)
[2021-12-02] MEDS: atenoloL 50 MG TAB PO SCH ×2 (14:39→21:14)
[2021-12-02] MEDS: THIAMINE 100 MG TAB PO SCH ×2 (14:39→21:11)
[2021-12-02] MEDS: MULTIVITAMINS/MINERALS THERAP 1 TAB PO SCH (14:40)
[2021-12-02] MEDS: FOLIC ACID 1MG TAB PO SCH (14:40)
[2021-12-02] MEDS ORDERED: POTASSIUM CHLORIDE 10MEQ SR TABLET PO ONE ×2 (15:15→16:00)
[2021-12-02] MEDS ORDERED: PERCOCET 5MG/325MG TAB PO ONE (15:20)
[2021-12-02] MEDS ORDERED: NS 1,000 ML IV ONE (15:45)
[2021-12-02] MEDS ORDERED: LORazepam 2 MG TAB PO PRN (16:00)
[2021-12-02] MEDS: ceFAZolin SOD 2 GM in IV 1 EA IV SCH (16:33)
[2021-12-02] MEDS: ACETAMINOPHEN TAB 650MG DOSE (2X325MG) PO SCH (17:43)
[2021-12-02] MEDS: oxyCODONE 5MG TAB PO PRN (20:31)
[2021-12-02] MEDS: ASPIRIN 81MG ENTERIC TABLET PO SCH (21:00)
[2021-12-02] MEDS: DOCUSATE SODIUM 100MG CAPSULE PO SCH (21:15)
[2021-12-02] MEDS: ROSUVASTATIN 10 MG TAB (CRESTOR) PO SCH (21:15)
[2021-12-03] VITALS (9 sets, daily range): BP systolic 107–146; BP diastolic 59–93
[2021-12-03] MEDS: ACETAMINOPHEN TAB 650MG DOSE (2X325MG) PO SCH ×5 (00:49→22:04)
[2021-12-03] MEDS: oxyCODONE 5MG TAB PO PRN ×6 (00:53→20:42)
[2021-12-03] MEDS: ceFAZolin SOD 2 GM in IV 1 EA IV SCH (00:54)
[2021-12-03 06:30] LABS: HEMATOCRIT 23.6 % (42.0-52.0); MEAN CORPUSCULAR HEMOGLOBIN 34.3 pg (27.0-33.0); MEAN CORPUSCULAR HGB CONC 33.5 g/dl (32.0-36.5); MEAN CORPUSCULAR VOLUME 102.6 fl (80.0-96.0); PLATELET COUNT, AUTOMATED 184 10^3/uL (150-450)
[2021-12-03 06:43] LABS: HEMOGLOBIN 7.9 g/dl (13.5-17.5)
[2021-12-03 06:45] LABS: CALCIUM LEVEL 8.2 MG/DL (8.5-10.1); CREATININE FOR GFR 1.87 MG/DL (0.70-1.30); GLOMERULAR FILTRATION RATE 40.1 (>56); POTASSIUM SERUM 3.9 MEQ/L (3.5-5.1)
[2021-12-03] MEDS: THIAMINE 100 MG TAB PO SCH ×2 (08:24→20:41)
[2021-12-03] MEDS: MULTIVITAMINS/MINERALS THERAP 1 TAB PO SCH (08:24)
[2021-12-03] MEDS: ASCORBIC ACID 500 MG TAB PO SCH (08:24)
[2021-12-03] MEDS: FERROUS SULFATE 325MG TAB PO SCH (08:24)
[2021-12-03] MEDS: DOCUSATE SODIUM 100MG CAPSULE PO SCH ×2 (08:25→20:41)
[2021-12-03] MEDS: FOLIC ACID 1MG TAB PO SCH (08:25)
[2021-12-03] MEDS: atenoloL 50 MG TAB PO SCH ×2 (08:34→20:41)
[2021-12-03] MEDS: INSULIN LISPRO (NovoLOG) PER UNIT SC SCH ×4 (08:35→20:47)
[2021-12-03] MEDS: NICOTINE 7 MG/24 HR TRANSDERMAL TD SCH (08:36)
[2021-12-03] MEDS: ASPIRIN 81MG ENTERIC TABLET PO SCH ×2 (08:48→20:41)
[2021-12-03] MEDS ORDERED: amLODIPine 5 MG TAB PO PRN (10:10)
[2021-12-03] MEDS: NS 1,000 ML IV SCH ×2 (10:31→20:46)
[2021-12-03] MEDS: HEPARIN SOD (PORCINE) 5000UNITS/ML 1ML VIAL/SYRINGE SQ SCH ×2 (10:37→20:40)
[2021-12-03 10:42] LABS: HEMATOCRIT 23.2 % (42.0-52.0); HEMOGLOBIN 7.9 g/dl (13.5-17.5)
[2021-12-03 12:28] LABS: PERCENT SATURATION 20.5 % (19.7-50.0)
[2021-12-03] MEDS ORDERED: CYCLOBENZAPRINE 10MG TABLET PO ONE (19:00)
[2021-12-03 20:15] LABS: HEMATOCRIT 27.4 % (42.0-52.0); HEMOGLOBIN 9.3 g/dl (13.5-17.5)
[2021-12-03 20:37] LABS: CALCIUM LEVEL 8.3 MG/DL (8.5-10.1); CREATININE FOR GFR 1.6 MG/DL (0.70-1.30); POTASSIUM SERUM 3.6 MEQ/L (3.5-5.1)
[2021-12-03] MEDS: traZODone 100 MG TAB PO PRN (20:41)
[2021-12-03] MEDS: ROSUVASTATIN 10 MG TAB (CRESTOR) PO SCH (20:41)
[2021-12-04] MEDS: oxyCODONE 5MG TAB PO PRN ×5 (02:05→23:08)
[2021-12-04 05:41] VITALS: BP 161/103
[2021-12-04 05:51] LABS: HEMATOCRIT 25.6 % (42.0-52.0); HEMOGLOBIN 8.9 g/dl (13.5-17.5); MEAN CORPUSCULAR HEMOGLOBIN 34.2 pg (27.0-33.0); MEAN CORPUSCULAR HGB CONC 34.8 g/dl (32.0-36.5); MEAN CORPUSCULAR VOLUME 98.5 fl (80.0-96.0); PLATELET COUNT, AUTOMATED 149 10^3/uL (150-450); WHITE BLOOD COUNT 10.6 10^3/uL (4.0-10.0)
[2021-12-04] MEDS: ACETAMINOPHEN TAB 650MG DOSE (2X325MG) PO SCH ×4 (06:14→23:07)
[2021-12-04 06:20] LABS: CALCIUM LEVEL 8.4 MG/DL (8.5-10.1); CREATININE FOR GFR 1.37 MG/DL (0.70-1.30); GLOMERULAR FILTRATION RATE 57.4 (>56); POTASSIUM SERUM 3.5 MEQ/L (3.5-5.1)
[2021-12-04] MEDS: INSULIN LISPRO (NovoLOG) PER UNIT SC SCH ×4 (07:15→20:45)
[2021-12-04 08:24] VITALS: BP 119/78
[2021-12-04] MEDS: atenoloL 50 MG TAB PO SCH ×2 (08:34→20:45)
[2021-12-04] MEDS: ASPIRIN 81MG ENTERIC TABLET PO SCH ×2 (09:00→20:47)
[2021-12-04] MEDS: FERROUS SULFATE 325MG TAB PO SCH ×2 (09:17→20:44)
[2021-12-04] MEDS: FOLIC ACID 1MG TAB PO SCH (09:17)
[2021-12-04] MEDS: ASCORBIC ACID 500 MG TAB PO SCH (09:17)
[2021-12-04] MEDS: NICOTINE 7 MG/24 HR TRANSDERMAL TD SCH (09:17)
[2021-12-04] MEDS: DOCUSATE SODIUM 100MG CAPSULE PO SCH ×2 (09:17→20:45)
[2021-12-04] MEDS: MULTIVITAMINS/MINERALS THERAP 1 TAB PO SCH (09:17)
[2021-12-04] MEDS: HEPARIN SOD (PORCINE) 5000UNITS/ML 1ML VIAL/SYRINGE SQ SCH ×2 (09:17→20:45)
[2021-12-04] MEDS: THIAMINE 100 MG TAB PO SCH ×2 (09:17→20:45)
[2021-12-04 11:01] LABS: VITAMIN B12 LEVEL 491 PG/ML
[2021-12-04 11:02] LABS: FOLATE > 24.0 NG/ML
[2021-12-04 14:00] VITALS: BP 149/91
[2021-12-04] MEDS: ROSUVASTATIN 10 MG TAB (CRESTOR) PO SCH (20:43)
[2021-12-04 22:00] VITALS: BP 130/82
[2021-12-04] MEDS: traZODone 100 MG TAB PO PRN (23:08)
[2021-12-05] MEDS: ACETAMINOPHEN TAB 650MG DOSE (2X325MG) PO SCH ×3 (05:48→17:18)
[2021-12-05] MEDS: oxyCODONE 5MG TAB PO PRN ×4 (05:48→22:13)
[2021-12-05 06:00] VITALS: BP 140/97
[2021-12-05 06:17] LABS: HEMOGLOBIN 9.5 g/dl (13.5-17.5); MEAN CORPUSCULAR HEMOGLOBIN 33.3 pg (27.0-33.0); MEAN CORPUSCULAR HGB CONC 33.9 g/dl (32.0-36.5); MEAN CORPUSCULAR VOLUME 98.2 fl (80.0-96.0); PLATELET COUNT, AUTOMATED 150 10^3/uL (150-450); RED BLOOD COUNT 2.85 10^6/uL (4.30-6.10); WHITE BLOOD COUNT 8.9 10^3/uL (4.0-10.0)
[2021-12-05 06:32] LABS: BLOOD UREA NITROGEN 22 MG/DL (7-18); CALCIUM LEVEL 8.4 MG/DL (8.5-10.1); CARBON DIOXIDE LEVEL 27 MEQ/L (21-32); CHLORIDE LEVEL 106 MEQ/L (98-107); CREATININE FOR GFR 1.18 MG/DL (0.70-1.30); GLOMERULAR FILTRATION RATE > 60.0 (>56); GLUCOSE, FASTING 111 MG/DL (70-100); POTASSIUM SERUM 3.3 MEQ/L (3.5-5.1); SODIUM LEVEL 137 MEQ/L (136-145)
[2021-12-05] MEDS: INSULIN LISPRO (NovoLOG) PER UNIT SC SCH ×4 (07:50→21:00)
[2021-12-05] MEDS: HEPARIN SOD (PORCINE) 5000UNITS/ML 1ML VIAL/SYRINGE SQ SCH ×2 (07:50→22:12)
[2021-12-05] MEDS: FOLIC ACID 1MG TAB PO SCH (07:51)
[2021-12-05] MEDS: MULTIVITAMINS/MINERALS THERAP 1 TAB PO SCH (07:51)
[2021-12-05] MEDS: FERROUS SULFATE 325MG TAB PO SCH ×2 (07:51→22:12)
[2021-12-05] MEDS: ASCORBIC ACID 500 MG TAB PO SCH (07:51)
[2021-12-05] MEDS: ASPIRIN 81MG ENTERIC TABLET PO SCH ×2 (07:51→22:12)
[2021-12-05] MEDS: DOCUSATE SODIUM 100MG CAPSULE PO SCH ×2 (07:52→22:15)
[2021-12-05] MEDS: atenoloL 50 MG TAB PO SCH ×2 (07:54→22:14)
[2021-12-05] MEDS: amLODIPine 5 MG TAB PO SCH (07:55)
[2021-12-05] MEDS: NICOTINE 7 MG/24 HR TRANSDERMAL TD SCH (08:05)
[2021-12-05] MEDS ORDERED: POTASSIUM CHLORIDE 10MEQ SR TABLET PO ONE (08:30)
[2021-12-05 14:00] VITALS: BP 132/87
[2021-12-05] MEDS ORDERED: COVID-19 VAC, BV (MODERNA)/PF 50 MCG/0.5 ML VIAL (EUA) IM.IMMUN ONE (16:00)
[2021-12-05 19:31] VITALS: BP 128/83
[2021-12-05] MEDS: ROSUVASTATIN 10 MG TAB (CRESTOR) PO SCH (22:12)
[2021-12-05] MEDS: CYCLOBENZAPRINE 5MG TABLET PO SCH (22:13)
[2021-12-06] MEDS: traZODone 100 MG TAB PO PRN ×2 (01:42→21:46)
[2021-12-06] MEDS: ACETAMINOPHEN TAB 650MG DOSE (2X325MG) PO SCH ×5 (01:42→17:42)
[2021-12-06] MEDS: CYCLOBENZAPRINE 5MG TABLET PO SCH ×3 (05:31→21:46)
[2021-12-06 05:39] VITALS: BP 131/86
[2021-12-06 06:18] LABS: HEMATOCRIT 27.4 % (42.0-52.0); HEMOGLOBIN 9.3 g/dl (13.5-17.5); MEAN CORPUSCULAR HEMOGLOBIN 33.3 pg (27.0-33.0); MEAN CORPUSCULAR HGB CONC 33.9 g/dl (32.0-36.5); MEAN CORPUSCULAR VOLUME 98.2 fl (80.0-96.0); PLATELET COUNT, AUTOMATED 159 10^3/uL (150-450); RED BLOOD COUNT 2.79 10^6/uL (4.30-6.10); WHITE BLOOD COUNT 9.1 10^3/uL (4.0-10.0)
[2021-12-06] MEDS: oxyCODONE 5MG TAB PO PRN ×3 (06:36→21:47)
[2021-12-06 07:36] LABS: BLOOD UREA NITROGEN 23 MG/DL (7-18); CALCIUM LEVEL 8.6 MG/DL (8.5-10.1); CARBON DIOXIDE LEVEL 25 MEQ/L (21-32); CHLORIDE LEVEL 107 MEQ/L (98-107); CREATININE FOR GFR 1.26 MG/DL (0.70-1.30); GLOMERULAR FILTRATION RATE > 60.0 (>56); GLUCOSE, FASTING 105 MG/DL (70-100); SODIUM LEVEL 138 MEQ/L (136-145)
[2021-12-06] MEDS: INSULIN LISPRO (NovoLOG) PER UNIT SC SCH ×4 (08:26→21:00)
[2021-12-06] MEDS: ASCORBIC ACID 500 MG TAB PO SCH (08:27)
[2021-12-06] MEDS: MULTIVITAMINS/MINERALS THERAP 1 TAB PO SCH (08:27)
[2021-12-06] MEDS: FERROUS SULFATE 325MG TAB PO SCH ×2 (08:27→21:46)
[2021-12-06] MEDS: HEPARIN SOD (PORCINE) 5000UNITS/ML 1ML VIAL/SYRINGE SQ SCH ×2 (08:27→21:45)
[2021-12-06] MEDS: DOCUSATE SODIUM 100MG CAPSULE PO SCH ×2 (08:30→21:46)
[2021-12-06] MEDS: atenoloL 50 MG TAB PO SCH ×2 (08:30→21:00)
[2021-12-06] MEDS: FOLIC ACID 1MG TAB PO SCH (08:30)
[2021-12-06] MEDS: ASPIRIN 81MG ENTERIC TABLET PO SCH ×2 (08:30→21:45)
[2021-12-06] MEDS: NICOTINE 7 MG/24 HR TRANSDERMAL TD SCH (08:31)
[2021-12-06] MEDS: amLODIPine 5 MG TAB PO SCH (08:31)
[2021-12-06] MEDS: ROSUVASTATIN 10 MG TAB (CRESTOR) PO SCH (21:46)
[2021-12-06 22:00] VITALS: BP 119/75
[2021-12-07] MEDS: ACETAMINOPHEN TAB 650MG DOSE (2X325MG) PO SCH ×4 (05:32→18:22)
[2021-12-07] MEDS: CYCLOBENZAPRINE 5MG TABLET PO SCH ×3 (05:32→20:45)
[2021-12-07] MEDS: oxyCODONE 5MG TAB PO PRN ×2 (05:33→12:32)
[2021-12-07 05:49] VITALS: BP 137/76
[2021-12-07 07:17] LABS: HEMATOCRIT 26.6 % (42.0-52.0); HEMOGLOBIN 8.8 g/dl (13.5-17.5); MEAN CORPUSCULAR HGB CONC 33.1 g/dl (32.0-36.5); MEAN CORPUSCULAR VOLUME 99.6 fl (80.0-96.0); PLATELET COUNT, AUTOMATED 149 10^3/uL (150-450); RED BLOOD COUNT 2.67 10^6/uL (4.30-6.10); WHITE BLOOD COUNT 8.4 10^3/uL (4.0-10.0)
[2021-12-07 07:57] LABS: BLOOD UREA NITROGEN 24 MG/DL (7-18); CALCIUM LEVEL 8.7 MG/DL (8.5-10.1); CARBON DIOXIDE LEVEL 25 MEQ/L (21-32); CHLORIDE LEVEL 106 MEQ/L (98-107); CREATININE FOR GFR 1.08 MG/DL (0.70-1.30); GLOMERULAR FILTRATION RATE > 60.0 (>56); GLUCOSE, FASTING 102 MG/DL (70-100); SODIUM LEVEL 138 MEQ/L (136-145)
[2021-12-07] MEDS: NICOTINE 7 MG/24 HR TRANSDERMAL TD SCH (09:00)
[2021-12-07] MEDS: atenoloL 50 MG TAB PO SCH ×2 (09:30→20:46)
[2021-12-07] MEDS: FERROUS SULFATE 325MG TAB PO SCH ×2 (09:30→20:45)
[2021-12-07] MEDS: DOCUSATE SODIUM 100MG CAPSULE PO SCH ×2 (09:30→20:45)
[2021-12-07] MEDS: ASCORBIC ACID 500 MG TAB PO SCH (09:30)
[2021-12-07] MEDS: FOLIC ACID 1MG TAB PO SCH (09:30)
[2021-12-07] MEDS: MULTIVITAMINS/MINERALS THERAP 1 TAB PO SCH (09:30)
[2021-12-07] MEDS: amLODIPine 5 MG TAB PO SCH (09:30)
[2021-12-07] MEDS: ASPIRIN 81MG ENTERIC TABLET PO SCH ×2 (09:30→20:45)
[2021-12-07] MEDS: HEPARIN SOD (PORCINE) 5000UNITS/ML 1ML VIAL/SYRINGE SQ SCH ×2 (09:31→20:47)
[2021-12-07] MEDS: INSULIN LISPRO (NovoLOG) PER UNIT SC SCH ×4 (09:32→19:31)
[2021-12-07] MEDS: ROSUVASTATIN 10 MG TAB (CRESTOR) PO SCH (20:45)
[2021-12-07] MEDS: traZODone 100 MG TAB PO PRN (20:45)
[2021-12-08] MEDS: CYCLOBENZAPRINE 5MG TABLET PO SCH ×3 (05:19→20:46)
[2021-12-08] MEDS: ACETAMINOPHEN TAB 650MG DOSE (2X325MG) PO SCH ×4 (05:20→17:21)
[2021-12-08 06:00] VITALS: BP 125/80
[2021-12-08 06:05] LABS: MEAN CORPUSCULAR HEMOGLOBIN 33.5 pg (27.0-33.0); MEAN CORPUSCULAR HGB CONC 33.3 g/dl (32.0-36.5); MEAN CORPUSCULAR VOLUME 100.4 fl (80.0-96.0); PLATELET COUNT, AUTOMATED 180 10^3/uL (150-450); RED BLOOD COUNT 2.69 10^6/uL (4.30-6.10); WHITE BLOOD COUNT 7.8 10^3/uL (4.0-10.0)
[2021-12-08 06:32] LABS: BLOOD UREA NITROGEN 21 MG/DL (7-18); CALCIUM LEVEL 8.9 MG/DL (8.5-10.1); CARBON DIOXIDE LEVEL 25 MEQ/L (21-32); CHLORIDE LEVEL 107 MEQ/L (98-107); CREATININE FOR GFR 1.04 MG/DL (0.70-1.30); GLOMERULAR FILTRATION RATE > 60.0 (>56); GLUCOSE, FASTING 110 MG/DL (70-100); POTASSIUM SERUM 4.3 MEQ/L (3.5-5.1); SODIUM LEVEL 139 MEQ/L (136-145)
[2021-12-08] MEDS: INSULIN LISPRO (NovoLOG) PER UNIT SC SCH ×4 (07:57→20:58)
[2021-12-08] MEDS: FERROUS SULFATE 325MG TAB PO SCH ×2 (07:58→20:45)
[2021-12-08] MEDS: FOLIC ACID 1MG TAB PO SCH (07:58)
[2021-12-08] MEDS: ASPIRIN 81MG ENTERIC TABLET PO SCH ×2 (07:58→20:45)
[2021-12-08] MEDS: DOCUSATE SODIUM 100MG CAPSULE PO SCH ×2 (07:58→20:58)
[2021-12-08] MEDS: amLODIPine 5 MG TAB PO SCH (07:59)
[2021-12-08] MEDS: HEPARIN SOD (PORCINE) 5000UNITS/ML 1ML VIAL/SYRINGE SQ SCH ×2 (08:00→20:45)
[2021-12-08] MEDS: atenoloL 50 MG TAB PO SCH ×2 (08:00→20:46)
[2021-12-08] MEDS: MULTIVITAMINS/MINERALS THERAP 1 TAB PO SCH (08:00)
[2021-12-08] MEDS: ASCORBIC ACID 500 MG TAB PO SCH (08:00)
[2021-12-08] MEDS: NICOTINE 7 MG/24 HR TRANSDERMAL TD SCH (08:01)
[2021-12-08] MEDS: oxyCODONE 5MG TAB PO PRN ×2 (08:07→16:23)
[2021-12-08] MEDS: ROSUVASTATIN 10 MG TAB (CRESTOR) PO SCH (20:45)
[2021-12-08] MEDS: traZODone 100 MG TAB PO PRN (20:45)
[2021-12-09] MEDS: CYCLOBENZAPRINE 5MG TABLET PO SCH ×3 (05:47→20:35)
[2021-12-09] MEDS: ACETAMINOPHEN TAB 650MG DOSE (2X325MG) PO PRN ×2 (05:48→20:36)
[2021-12-09 06:00] VITALS: BP 121/83
[2021-12-09] MEDS: INSULIN LISPRO (NovoLOG) PER UNIT SC SCH ×4 (08:11→21:00)
[2021-12-09] MEDS: DOCUSATE SODIUM 100MG CAPSULE PO SCH ×2 (08:12→20:28)
[2021-12-09] MEDS: ASCORBIC ACID 500 MG TAB PO SCH (08:12)
[2021-12-09] MEDS: NICOTINE 7 MG/24 HR TRANSDERMAL TD SCH (08:13)
[2021-12-09] MEDS: FERROUS SULFATE 325MG TAB PO SCH ×2 (08:13→20:35)
[2021-12-09] MEDS: MULTIVITAMINS/MINERALS THERAP 1 TAB PO SCH (08:13)
[2021-12-09] MEDS: ASPIRIN 81MG ENTERIC TABLET PO SCH ×2 (08:13→20:35)
[2021-12-09] MEDS: FOLIC ACID 1MG TAB PO SCH (08:13)
[2021-12-09] MEDS: HEPARIN SOD (PORCINE) 5000UNITS/ML 1ML VIAL/SYRINGE SQ SCH ×2 (08:13→20:36)
[2021-12-09] MEDS: atenoloL 50 MG TAB PO SCH ×2 (08:14→20:38)
[2021-12-09] MEDS: amLODIPine 5 MG TAB PO SCH (09:00)
[2021-12-09 11:02] LABS: MEAN CORPUSCULAR HEMOGLOBIN 33.8 pg (27.0-33.0); MEAN CORPUSCULAR HGB CONC 33.3 g/dl (32.0-36.5); MEAN CORPUSCULAR VOLUME 101.3 fl (80.0-96.0); PLATELET COUNT, AUTOMATED 176 10^3/uL (150-450); RED BLOOD COUNT 2.37 10^6/uL (4.30-6.10); WHITE BLOOD COUNT 7.6 10^3/uL (4.0-10.0)
[2021-12-09 11:29] LABS: BLOOD UREA NITROGEN 19 MG/DL (7-18); CALCIUM LEVEL 8.8 MG/DL (8.5-10.1); CARBON DIOXIDE LEVEL 23 MEQ/L (21-32); CHLORIDE LEVEL 110 MEQ/L (98-107); CREATININE FOR GFR 1.05 MG/DL (0.70-1.30); GLOMERULAR FILTRATION RATE > 60.0 (>56); GLUCOSE, FASTING 130 MG/DL (70-100); POTASSIUM SERUM 4.1 MEQ/L (3.5-5.1); SODIUM LEVEL 140 MEQ/L (136-145)
[2021-12-09] MEDS: traZODone 100 MG TAB PO PRN (20:35)
[2021-12-09] MEDS: ROSUVASTATIN 10 MG TAB (CRESTOR) PO SCH (20:35)
[2021-12-10] MEDS: ACETAMINOPHEN TAB 650MG DOSE (2X325MG) PO PRN (05:22)
[2021-12-10] MEDS: CYCLOBENZAPRINE 5MG TABLET PO SCH ×2 (05:22→13:45)
[2021-12-10 06:00] VITALS: BP 105/67
[2021-12-10] MEDS: FOLIC ACID 1MG TAB PO SCH (08:46)
[2021-12-10] MEDS: INSULIN LISPRO (NovoLOG) PER UNIT SC SCH ×2 (08:46→12:00)
[2021-12-10] MEDS: ASCORBIC ACID 500 MG TAB PO SCH (08:46)
[2021-12-10] MEDS: ASPIRIN 81MG ENTERIC TABLET PO SCH (08:46)
[2021-12-10] MEDS: DOCUSATE SODIUM 100MG CAPSULE PO SCH (08:46)
[2021-12-10] MEDS: FERROUS SULFATE 325MG TAB PO SCH (08:46)
[2021-12-10] MEDS: HEPARIN SOD (PORCINE) 5000UNITS/ML 1ML VIAL/SYRINGE SQ SCH (08:47)
[2021-12-10] MEDS: MULTIVITAMINS/MINERALS THERAP 1 TAB PO SCH (08:47)
[2021-12-10 08:48] VITALS: BP 108/71
[2021-12-10] MEDS: atenoloL 50 MG TAB PO SCH (08:48)
[2021-12-10] MEDS: amLODIPine 5 MG TAB PO SCH (08:55)
[2021-12-10] MEDS: NICOTINE 7 MG/24 HR TRANSDERMAL TD SCH (08:55)
[2021-12-10] MEDS: oxyCODONE 5MG TAB PO PRN (12:32)
[2021-12-10] MEDS ORDERED: COLA100C5 PO (13:08)
[2021-12-10] MEDS ORDERED: TRAM50TA2 PO (13:08)
[2021-12-10] MEDS ORDERED: AMLO1TAB24 PO (13:08)
[2021-12-10] MEDS ORDERED: ASPI-551 PO (13:08)
[2021-12-10] MEDS ORDERED: SENN18TA PO (13:08)
[2021-12-10] MEDS ORDERED: ACET1TAB55 PO (13:08)
[2021-12-10] MEDS ORDERED: OXYC-517 PO (13:08)
[2021-12-10] MEDS ORDERED: FERR1TAB8 PO (13:08)
[2021-12-10] MEDS ORDERED: METF500T13 PO (13:18)
== END 2021-12-10 14:25 | disposition home or self-care (01) | DRG 522 ==
LOC: M ED 15:34 → M ED INP 20:39 → M MS5PR 22:48
PROVIDERS: ADMIT Internal Medicine; ATTEND Internal Medicine
PROC: 0SRB03A Replacement of Left Hip Joint with Ceramic Synthetic Substitute, Uncemented, Open Approach (ICD-10-PCS; principal; 2021-12-02 08:30)
DX: M84.452A Pathological fracture, left femur, initial encounter for fracture (principal); N17.9 Acute kidney failure, unspecified; I48.20 Chronic atrial fibrillation, unspecified; M87.052 Idiopathic aseptic necrosis of left femur; E11.9 Type 2 diabetes mellitus without complications; F10.20 Alcohol dependence, uncomplicated; R29.6 Repeated falls; F17.210 Nicotine dependence, cigarettes, uncomplicated; M16.12 Unilateral primary osteoarthritis, left hip; I10 Essential (primary) hypertension; D50.9 Iron deficiency anemia, unspecified; Z79.899 Other long term (current) drug therapy; Z88.8 Allergy status to other drugs, medicaments and biological substances; Z90.49 Acquired absence of other specified parts of digestive tract; Z96.642 Presence of left artificial hip joint

== ENCOUNTER → 2021-12-17 | Outpatient (CLI) | payer OTHER ==
[~2021-12-17] MED LIST changes: +ACET-683 PO; +ACET1TAB55 PO; +AMLO1TAB24 PO; +ASPI-551 PO; +COLA100C5 PO; +FERR1TAB8 PO; +METH-1164 PO; +OXYC-517 PO; +SENN18TA PO
== END ==
LOC: M SOG 08:14
PROVIDERS: ATTEND Orthopaedic Surgery Adult Reconstructive Orthopaedic Surgery
DX: M25.552 Pain in left hip (principal)

== ENCOUNTER → 2021-12-19 | Outpatient (CLI) | payer OTHER | LOC: M SOG 07:58 | PROVIDERS: ATTEND Orthopaedic Surgery Adult Reconstructive Orthopaedic Surgery | DX: M25.552 Pain in left hip (principal) ==

== ENCOUNTER 2022-04-23 11:09 | Inpatient (IN) | payer OTHER ==
[~2022-04-23] VITALS: Ht 172.7 cm; Wt 84.9 kg
[~2022-04-23 11:09] MED LIST changes: +FOLIC ACID 1MG TAB PO SCH; +MULTIVITAMINS/MINERALS THERAP 1 TAB PO SCH; +THIAMINE 100 MG TAB PO SCH
[2022-04-23] MEDS ORDERED: LORazepam 2 MG TAB PO PRN ×2 (14:05→16:50)
[2022-04-23] MEDS ORDERED: OXAZEPAM 15MG CAP PO ONE (14:25)
[2022-04-23] MEDS ORDERED: NS 1,000 ML IV ONE ×2 (14:25→15:35)
[2022-04-23 14:49] LABS: BASO % 0.1 % (0.0-1.0); HEMATOCRIT 34.2 % (42.0-52.0); HEMOGLOBIN 11.3 g/dl (13.5-17.5); LYMPH # 1.2 10^3/uL (1.5-5.0); LYMPH % 10.6 % (24.0-44.0); MEAN CORPUSCULAR HEMOGLOBIN 31.5 pg (27.0-33.0); MEAN CORPUSCULAR VOLUME 95.3 fl (80.0-96.0); MONO # 0.9 10^3/uL (0.0-0.8); MONO % 7.8 % (2.0-8.0); NEUTROPHILS # 9.5 10^3/uL (1.5-8.5); RED BLOOD COUNT 3.59 10^6/uL (4.30-6.10); WHITE BLOOD COUNT 11.7 10^3/uL (4.0-10.0)
[2022-04-23 15:05] LABS: INR 0.87
[2022-04-23 15:13] LABS: ALBUMIN 3.7 G/DL (3.2-5.2); BILIRUBIN,DIRECT 0.3 MG/DL (<0.4); BILIRUBIN,TOTAL 0.9 MG/DL (0.3-1.2); CALCIUM LEVEL 8.9 MG/DL (8.5-10.1); CREATININE FOR GFR 2.85 MG/DL (0.70-1.30); GLOMERULAR FILTRATION RATE 24.6 (>56); POTASSIUM SERUM 4.6 MMOL/L (3.5-5.1); TOTAL PROTEIN 6.8 G/DL (5.7-8.2)
[2022-04-23 16:22] LABS: RSV AMPLIFICATION NEGATIVE (NEGATIVE)
[2022-04-23 18:39] LABS: ABG BASE EXCESS -6.4 (-2.0-2.0); ABG PARTIAL PRESSURE CO2 32.3 mmHg (35.0-45.0); ABG PARTIAL PRESSURE O2 102.5 mmHg (75.0-100.0); ABG STANDARD HCO3 19.3 MEQ/L (22.0-26.0); ABG pH (ARTERIAL) 7.365 UNITS (7.350-7.450)
[2022-04-23] MEDS ORDERED: MULTIVITAMIN -ADULT INJECTION 10 ML, THIAMINE INJection 100 MG, FOLIC ACID 1 MG in NS 1... IV ONE (20:00)
[2022-04-23 20:05] LABS: HEMOGLOBIN A1c 5.2 % (4.0-6.0)
[2022-04-23 20:27] LABS: FREE T4 1.22 NG/DL (0.89-1.76); VITAMIN B12 LEVEL 436 PG/ML (211-911)
[2022-04-23 20:29] LABS: FOLATE > 24.00 NG/ML (>5.4); THYROID STIMULATING HORMONE 0.556 uIU/ML (0.55-4.78)
[2022-04-23] MEDS: THIAMINE 100 MG TAB PO SCH (20:32)
[2022-04-23 20:45] LABS: APPEARANCE, URINE MANUAL CLEAR (CLEAR); COLOR, URINE MANUAL DK YELLOW (YELLOW)
[2022-04-23 20:46] LABS: BILIRUBIN, URINE MANUAL NEGATIVE (NEGATIVE); BLOOD URINE MANUAL POSITIVE (NEGATIVE); GLUCOSE, URINE (UA) MANUAL NEGATIVE (NEGATIVE); KETONE, URINE MANUAL 1+ mg/dL (NEGATIVE); NITRITE, URINE MANUAL NEGATIVE (NEGATIVE); PROTEIN, URINE MANUAL 2+ mg/dL (NEGATIVE); UROBILINOGEN, URINE MANUAL NORMAL (NORMAL)
[2022-04-23 20:47] LABS: LEUKOCYTE ESTERASE, URINE MAN NEGATIVE (NEGATIVE)
[2022-04-23 21:05] LABS: BACTERIA, URINE SMALL AMOUNT; SQUAMOUS EPITHELIAL CELL URINE SMALL AMOUNT /hpf (SMALL AMT)
[2022-04-23] MEDS ORDERED: OMEP40CA5 PO (22:18)
[2022-04-23] MEDS ORDERED: PRED5TA PO (22:18)
[2022-04-23] MEDS ORDERED: ZOLO100T PO (22:18)
[2022-04-23] MEDS ORDERED: ATEN25TA PO (22:18)
[2022-04-23] MEDS ORDERED: LISI10TA22 PO (22:18)
[2022-04-23] MEDS ORDERED: NALT50TA4 PO (22:18)
[2022-04-23] MEDS ORDERED: METH-1165 PO (22:18)
[2022-04-23] MEDS ORDERED: FISH10002 PO (22:18)
[2022-04-23] MEDS ORDERED: TRAM50TA2 PO (22:18)
[2022-04-23] MEDS ORDERED: HOME MED LIST COMPLETE! XX SCH (22:20)
[2022-04-23 23:44] VITALS: BP 112/68
[2022-04-24 01:09] VITALS: BP 112/68
[2022-04-24 02:09] VITALS: BP 109/68
[2022-04-24] MEDS ORDERED: ACETAMINOPHEN 325 MG TAB PO ONE (04:00)
[2022-04-24] MEDS ORDERED: LIDOCAINE 5% (LIDODERM) PATCH TD SCH (04:00)
[2022-04-24 06:00] VITALS: BP 116/74
[2022-04-24 06:10] VITALS: BP 116/74
[2022-04-24 06:12] LABS: HEMATOCRIT 28.5 % (42.0-52.0); HEMOGLOBIN 9.6 g/dl (13.5-17.5); MEAN CORPUSCULAR HEMOGLOBIN 31.4 pg (27.0-33.0); MEAN CORPUSCULAR HGB CONC 33.7 g/dl (32.0-36.5); MEAN CORPUSCULAR VOLUME 93.1 fl (80.0-96.0); RED BLOOD COUNT 3.06 10^6/uL (4.30-6.10); WHITE BLOOD COUNT 7.5 10^3/uL (4.0-10.0)
[2022-04-24 06:32] LABS: MAGNESIUM LEVEL 1.3 MG/DL (1.8-2.4)
[2022-04-24 06:39] LABS: CALCIUM LEVEL 7.6 MG/DL (8.5-10.1); CORTISOL AM 15.4 UG/DL (4.3-22.4); CREATININE FOR GFR 1.74 MG/DL (0.70-1.30); GLOMERULAR FILTRATION RATE 43.4 (>56); POTASSIUM SERUM 3.4 MMOL/L (3.5-5.1)
[2022-04-24 06:50] LABS: PLATELET COUNT, AUTOMATED 92 10^3/uL (150-450)
[2022-04-24] MEDS ORDERED: ENOXAPARIN 40MG/0.4ML SYRINGE (J1650 PER 10MG) SC SCH (09:00)
[2022-04-24] MEDS ORDERED: MULTIVITAMINS/MINERALS THERAP 1 TAB PO SCH (09:00)
[2022-04-24] MEDS ORDERED: FOLIC ACID 1MG TAB PO SCH (09:00)
[2022-04-24] MEDS: THIAMINE 100 MG TAB PO SCH (09:02)
== END 2022-04-24 13:30 | disposition home or self-care (01) | DRG 897 ==
LOC: EDBD 11:09 → M ED 11:09 → M ED INP 16:47 → M MS5PR 23:30
PROVIDERS: ADMIT Family Medicine; ATTEND Family Medicine
DX: F10.232 Alcohol dependence with withdrawal with perceptual disturbance (principal); E87.1 Hypo-osmolality and hyponatremia; E87.20 Acidosis, unspecified; N17.9 Acute kidney failure, unspecified; M54.50 Low back pain, unspecified; I10 Essential (primary) hypertension; I48.0 Paroxysmal atrial fibrillation; E11.9 Type 2 diabetes mellitus without complications; F17.210 Nicotine dependence, cigarettes, uncomplicated; M19.90 Unspecified osteoarthritis, unspecified site; Z90.49 Acquired absence of other specified parts of digestive tract; Z96.642 Presence of left artificial hip joint; Z20.822 Contact with and (suspected) exposure to COVID-19; Z79.899 Other long term (current) drug therapy; Z88.6 Allergy status to analgesic agent; Z88.8 Allergy status to other drugs, medicaments and biological substances; R44.1 Visual hallucinations